=== PATIENT | female | born 1960 | race Caucasian/White ===

== ENCOUNTER 2018-08-27 07:31 | Inpatient (IN) | payer BC, OTHER ==
[2018-08-27] MEDS ORDERED: LEVALBUTEROL 1.25 MG/3 ML NEB ONE (07:57)
[2018-08-27] MEDS ORDERED: NA CHLORIDE 0.9% 1,000 ML ONE (07:58)
--- NOTE | 2018-08-27 08:26 | RAD REPORT ---
EXAM DESCRIPTION: RAD - Chest Single View - 08/27/2018 8:08 am CLINICAL HISTORY: Cough;Dyspnea Chest pain. COMPARISON: CHEST PA AND LAT 2 VIEW dated 08/01/2012; CHEST SINGLE VIEW dated 01/08/2012 FINDINGS: Portable technique limits examination quality. Mild interstitial pulmonary edema suspected. The heart is mildly to moderately enlarged. No displaced fractures. IMPRESSION: Mild CHF versus volume overload pattern.
[2018-08-27 08:29] LABS: Absolute Lymphocytes (CBC) 0.6 K/uL (0.7-4.9); Absolute Monocytes 0.3 K/uL (0.1-1.3); Absolute Neutrophil 7.6 K/uL (1.8-8.0); Basophils % 0.3 % (0-1.3); Eosinophils % 0.4 % (0-4.4); Hematocrit 41.7 % (36.0-45.0); Lymphocytes % 6.6 % (15.3-44.8); MPV 9.1 fL (7.6-11.3); Monocytes % 3.8 % (3.3-12.3); RBC Red Blood Cell Count 4.96 M/uL (3.86-4.86)
[2018-08-27 08:41] LABS: BUN Blood Urea Nitrogen 6 mg/dL (7-18); Bicarbonate 27 mmol/L (21-32); Glucose Level 133 mg/dL (74-106); NT PRO-BNP 787 pg/mL (<125); Potassium 3.7 mmol/L (3.5-5.1); Sodium Level 134 mmol/L (136-145); Troponin (Emerg Dept Use Only) 0.02 ng/mL (0.0-0.045)
--- NOTE | 2018-08-27 09:25 | EKG ---
Test Date: 2018-08-27 Test Time: 07:49:43 Gill Box Operator: IAN MEASUREMENT RESULTS: Intervals: Rate: 97 MT: 160 QRSD: 96 QT: 332 QTc: 421 [place]: P: 56 MT: 160 QRS: -64 T: -7 INTERPRETIVE STATEMENTS: Sinus rhythm with premature supraventricular complexes and with occasional premature ventricular complexes Left axis deviation Pulmonary disease pattern Incomplete right bundle branch block Abnormal ECG Compared to ECG 06/29/2007 00:50:01 Atrial premature complex(es) now present Ventricular premature complex(es) now present Left-axis deviation now present Incomplete right bundle-branch block now present Electronically Signed On 08-27-18 09:24:14 VICE PRESIDENT OF MANUFACTURING by Amos Oneil
[2018-08-27 09:49] LABS: Blood Morphology Comment NOT SEEN (NOT SEEN); Platelet Estimate ADEQ; Urine White Blood Cell Casts OK
--- NOTE | 2018-08-27 10:04 | ER ---
Nurse's Notes [facility] Name: Herlinda Cruz Age: 57 yrs Sex: Female : 1960 Arrival Date: 08/27/2018 Time: 07:33 Bed 2 Private MD: JAKOB DAVIS Diagnosis: Influenza due to identified novel influenza A virus with pneumonia;Hypoxemia;Dyspnea, unspecified Presentation: 08/27 07:41 Presenting complaint: Patient states: Difficulty breathing, started yesterday, sg worsening this morning, pt is diaphoretic and pale in triage, denies cardiac history, reports myasthenia gravis hx. Transition of care: patient was not received from another setting of care. Onset of symptoms was August 26, 2018. Risk Assessment: Do you want to hurt yourself or someone else? Patient reports no desire to harm self or others. Initial Sepsis Screen: Does the patient meet any 2 criteria? RR > 20 per min. HR > 90 bpm. Does the patient have a suspected source of infection? No. Patient's initial sepsis screen is negative. Care prior to arrival: None. 07:41 Method Of Arrival: Wheelchair sg 07:41 Acuity: HOWARD 2 sg Historical: - Allergies: 07:44 PENICILLINS; sg 07:44 Codeine; sg - Home Meds: 07:44 Mestinon Oral [Active]; sg - PMHx: 07:44 Myasthenia Gravis; sg - Immunization history:: Adult Immunizations not up to date. - Social history:: Smoking status: Patient/guardian denies using tobacco. - Ebola Screening: : Patient negative for fever greater than or equal to 101.5 degrees Fahrenheit, and additional compatible Ebola Virus Disease symptoms Patient denies exposure to infectious person Patient denies travel to an Ebola-affected area in the 21 days before illness onset No symptoms or risks identified at this time. - Family history:: not pertinent. - Hospitalizations: : No recent hospitalization is reported. Screenin:57 Abuse screen: Denies threats or abuse. Denies injuries from another. Nutritional hb screening: No deficits noted. Tuberculosis screening: No symptoms or risk factors identified. Fall Risk None identified. Assessment: 08:00 General: Appears distressed, Behavior is cooperative, anxious. Pain: Denies pain. hb Neuro: Level of Consciousness is awake, alert, obeys commands, Oriented to person, place, time, situation. Cardiovascular: Heart tones S1 S2 present Capillary refill < 3 seconds Patient's skin is warm and dry. Rhythm is regular. Respiratory: Airway is patent Trachea midline Respiratory effort is labored, Respiratory pattern is tachypnea Breath sounds are coarse. GI: No signs and/or symptoms were reported involving the gastrointestinal system. : No signs and/or symptoms were reported regarding the genitourinary system. EENT: No signs and/or symptoms were reported regarding the EENT system. Derm: Skin is intact, is healthy with good turgor, Skin is diaphoretic, Skin is pink. Musculoskeletal: No signs and/or symptoms reported regarding the musculoskeletal system. 08:26 Reassessment: RT at bedside for BiPAP setup. BIPAP 14/7, R14, FiO2 40%. hb 09:00 Reassessment: Patient and/or family updated on plan of care and expected duration. Pain hb level reassessed. BiPAP continues, pt resting with eyes closed, easily arouses to verbal stimuli. VSS. 10:00 Reassessment: Patient appears in no apparent distress at this time. No changes from hb previously documented assessment. Patient and/or family updated on plan of care and expected duration. Pain level reassessed. 11:00 Reassessment: Patient appears in no apparent distress at this time. No changes from hb previously documented assessment. Patient and/or family updated on plan of care and expected duration. Pain level reassessed. BiPAP continues, admission ordered, awaiting room assignment at this time. 11:48 Reassessment: Attempted to call report to ICU, receiving nurse unavailable at this time.hb Vital Signs: 07:40 BP 144 / 65; Pulse 92; Resp 28; Pulse Ox 81% on R/A; Pain 0/10; hb 07:44 Temp 98.6(TE); sg 08:45 BP 119 / 58; Pulse 97; Resp 21; Pulse Ox 96% on 40% BiPAP; hb 09:30 BP 126 / 76; Pulse 82; Resp 16; Pulse Ox 96% on 40% BiPAP; hb 10:30 BP 122 / 72; Pulse 92; Resp 22; Temp 98.4; Pulse Ox 96% on 40% BiPAP; hb 11:28 BP 131 / 71; Pulse 85; Resp 19; Pulse Ox 97% on 40% BiPAP; hb 08:45 BIPAP 14/7, R14, FiO2 40% hb ED Course: 07:33 Patient arrived in ED. sb2 07:33 JAKOB DAVIS is Private Physician. sb2 07:41 Oni Ragsdale MD is Attending Physician. rn 07:42 Triage completed. sg 07:42 Arm band placed on. sg 07:45 Initial lab(s) drawn, by me, sent to lab. Inserted saline lock: 20 gauge in right iw forearm, using aseptic technique. Blood collected. 07:49 EKG done, by corrosion technician. reviewed by Oni Ragsdale MD. at1 08:00 Patient has correct armband on for positive identification. Placed in gown. Bed in low hb position. Call light in reach. Side rails up X2. 08:06 Inserted saline lock: 22 gauge in left hand, using aseptic technique. iw 08:09 XRAY CXR (1 view) In Process Unspecified. EDMS 08:49 Yodit Cordero RN is Primary Nurse. hb 10:03 Oksana Escobedo MD is Hospitalizing Provider. rn Administered Medications: 07:55 Drug: NS 0.9% 500 ml Route: IV; Rate: bolus; Site: right antecubital; hb 08:35 Follow up: Response: No adverse reaction; IV Status: Completed infusion hb 07:56 Drug: Xopenex 1.25 mg Route: Inhalation; hb 08:45 Follow up: Response: No adverse reaction hb 11:11 Drug: Tamiflu 75 mg Route: PO; hb 11:45 Follow up: Response: No adverse reaction hb Outcome: 10:03 Decision to Hospitalize by Provider. rn 12:54 Patient left the ED. hb Signatures: Dispatcher [employer] EDMS Mars Ryan, RN Ca Molina RN Oni Young MD MD rn Gonzales, Amanda, power tool repair technician EKG Tat1 Yodit Cordero RN RN hb Billeau, Sheri sb2
--- NOTE | 2018-08-27 10:05 | EDPHYS ---
Physician Documentation [facility] Name: Herlinda Cruz Age: 57 yrs Sex: Female : 1960 Arrival Date: 08/27/2018 Time: 07:33 Bed 2 Private MD: JAKOB DAVIS ED Physician Oni Ragsdale HPI: 08/27 08:01 This 57 yrs old Female presents to ER via Wheelchair with complaints of rn Breathing Difficulty. 08:01 The patient has shortness of breath at rest, with light activity. Onset: The rn symptoms/episode began/occurred 2 day(s) ago. Duration: The symptoms are continuous. The patient's shortness of breath is aggravated by exertion, light activity, talking, walking. Associated signs and symptoms: Pertinent positives: productive cough, fever, Pertinent negatives: hemoptysis, loss of consciousness. Severity of symptoms: At their worst the symptoms were moderate in the emergency department the symptoms are unchanged. The patient has not experienced similar symptoms in the past. The patient has not recently seen a physician. Reports sick exposure lately, + productive cough and subjective fever/chills, + SOB. . Historical: - Allergies: 07:44 PENICILLINS; sg 07:44 Codeine; sg - Home Meds: 07:44 Mestinon Oral [Active]; sg - PMHx: 07:44 Myasthenia Gravis; sg - Immunization history:: Adult Immunizations not up to date. - Social history:: Smoking status: Patient/guardian denies using tobacco. - Ebola Screening: : Patient negative for fever greater than or equal to 101.5 degrees Fahrenheit, and additional compatible Ebola Virus Disease symptoms Patient denies exposure to infectious person Patient denies travel to an Ebola-affected area in the 21 days before illness onset No symptoms or risks identified at this time. - Family history:: not pertinent. - Hospitalizations: : No recent hospitalization is reported. 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 Exam: 08:01 Constitutional: This is a well developed, well nourished patient who is awake, alert, rn + mild respiratory distress, speaking 3-4 word sentences Head/Face: Normocephalic, atraumatic. Eyes: Pupils equal round and reactive to light, extra-ocular motions intact. Lids and lashes normal. Conjunctiva and sclera are non-icteric and not injected. Cornea within normal limits. Periorbital areas with no swelling, redness, or edema. ENT: Dry MM, no stridor Cardiovascular: Regular rate and rhythm, No pulse deficits. Respiratory: Coarse breath sounds left lung russo, no wheezing, + tachypnea Abdomen/GI: soft, non-tender MS/ Extremity: Pulses equal, no cyanosis. Neurovascular intact. Full, normal range of motion. Equal circumference. Neuro: Awake and alert, GCS 15, oriented to person, place, time, and situation. Cranial nerves II-XII grossly intact. Motor strength 4/5 in all extremities. Sensory grossly intact. Vital Signs: 07:40 BP 144 / 65; Pulse 92; Resp 28; Pulse Ox 81% on R/A; Pain 0/10; hb 07:44 Temp 98.6(TE); sg 08:45 BP 119 / 58; Pulse 97; Resp 21; Pulse Ox 96% on 40% BiPAP; hb 09:30 BP 126 / 76; Pulse 82; Resp 16; Pulse Ox 96% on 40% BiPAP; hb 10:30 BP 122 / 72; Pulse 92; Resp 22; Temp 98.4; Pulse Ox 96% on 40% BiPAP; hb 11:28 BP 131 / 71; Pulse 85; Resp 19; Pulse Ox 97% on 40% BiPAP; hb 08:45 BIPAP 14/7, R14, FiO2 40% hb MDM: 07:41 Patient medically screened. rn 10:02 Differential diagnosis: pneumonia, Pneumothorax pulmonary edema, reactive airway rn disease, Sepsis. Data reviewed: vital signs, nurses notes, lab test result(s), EKG, radiologic studies, plain films, and as a result, I will admit patient. Counseling: I had a detailed discussion with the patient and/or guardian regarding: the historical points, exam findings, and any diagnostic results supporting the discharge/admit diagnosis, lab results, radiology results, the need for further work-up and treatment in the hospital. Response to treatment: the patient's symptoms have markedly improved after treatment, and as a result, I will admit patient. Admission orders: after a detailed discussion of the patient's condition and case, the admit orders are written by me. ED course: Much better on bipap, + flu pneumonia, will admit to Dr. Escobedo in ICU. . 08/27 07:45 Order name: Blood Culture Adult (2) rn 08/27 07:45 Order name: BMP; Complete Time: 09:51 rn 08/27 07:45 Order name: CBC with Diff; Complete Time: 09:51 rn 08/27 07:45 Order name: NT PRO-BNP; Complete Time: 09:51 rn 08/27 07:45 Order name: Troponin (emerg Dept Use Only); Complete Time: 09:51 rn 08/27 07:45 Order name: Flu; Complete Time: 09:51 rn 08/27 07:45 Order name: XRAY CXR (1 view); Complete Time: 08:27 rn 08/27 07:45 Order name: EKG; Complete Time: 07:47 rn 08/27 07:45 Order name: Lactate; Complete Time: 09:51 rn 08/27 07:45 Order name: Procalcitonin; Complete Time: 09:51 rn 08/27 08:32 Order name: CBC Smear Scan; Complete Time: 09:51 EDMS 08/27 07:45 Order name: Cardiac monitoring; Complete Time: 07:56 rn 08/27 07:45 Order name: EKG - Nurse/Tech; Complete Time: 07:56 rn 08/27 07:45 Order name: IV Saline Lock; Complete Time: 07:56 rn 08/27 07:45 Order name: Labs collected and sent; Complete Time: 07:56 rn 08/27 07:45 Order name: O2 Per Protocol; Complete Time: 07:56 rn 08/27 07:45 Order name: O2 Sat Monitoring; Complete Time: 07:56 rn Administered Medications: 07:55 Drug: NS 0.9% 500 ml Route: IV; Rate: bolus; Site: right antecubital; hb 08:35 Follow up: Response: No adverse reaction; IV Status: Completed infusion hb 07:56 Drug: Xopenex 1.25 mg Route: Inhalation; hb 08:45 Follow up: Response: No adverse reaction hb 11:11 Drug: Tamiflu 75 mg Route: PO; hb 11:45 Follow up: Response: No adverse reaction hb Disposition: 10:02 Critical Care:. rn Disposition: 08/27/18 10:03 Hospitalization ordered by Oksana Escobedo for Inpatient Admission. Preliminary diagnosis are Influenza due to identified novel influenza A virus with pneumonia, Hypoxemia, Dyspnea, unspecified. - Bed requested for Intensive Care Unit. - Status is Inpatient Admission. hb - Condition is Stable. - Problem is new. - Symptoms have improved. UTI on Admission? No Critical care time excluding procedures: 10:02 Critical care time: Bedside Care: 25 minutes, Consultation: 5 minutes. Total time: 30 rn minutes Signatures: Dispatcher [employer] Anastasia Mueller RN RN dw Gay, Steven, RN RN Oni Ragsdale MD MD rn Baxter, Heather, RN RN Corrections: (The following items were deleted from the chart) 10:28 10:03 Hospitalization Ordered by Oksana Escobedo MD for Inpatient Admission. Preliminary rn diagnosis is Influenza due to identified novel influenza A virus with pneumonia; Hypoxemia; Dyspnea, unspecified. Bed requested for Telemetry/MedSurg (Inpatient). Status is Inpatient Admission. Condition is Stable. Problem is new. Symptoms have improved. UTI on Admission? No. rn 11:25 10:28 08/27/2018 10:03 Hospitalization Ordered by Oksana Escobedo MD for Inpatient dw Admission. Preliminary diagnosis is Influenza due to identified novel influenza A virus with pneumonia; Hypoxemia; Dyspnea, unspecified. Bed requested for Intensive Care Unit. Status is Inpatient Admission. Condition is Stable. Problem is new. Symptoms have improved. UTI on Admission? No. rn 12:54 11:25 08/27/2018 10:03 Hospitalization Ordered by Oksana Escobedo MD for Inpatient hb Admission. Preliminary diagnosis is Influenza due to identified novel influenza A virus with pneumonia; Hypoxemia; Dyspnea, unspecified. Bed requested for Intensive Care Unit. Status is Inpatient Admission. Condition is Stable. Problem is new. Symptoms have improved. UTI on Admission? No. dw
[2018-08-27] MEDS ORDERED: NA CHLORIDE 0.9% 1,000 ML IV SCH (11:00)
[2018-08-27] MEDS: OSELTAMIVIR 75 MG CAP PO SCH ×2 (11:00→20:49)
--- NOTE | 2018-08-27 13:14 | P.HP ---
Certification for Inpatient Patient admitted to: Inpatient With expected LOS: >2 Midnights Patient will require the following post-hospital care: None Practitioner: I am a practitioner with admitting privileges, knowledge of patient current condition, hospital course, and medical plan of care. Services: Services provided to patient in accordance with Admission requirements found in Title 42 Section 412.3 of the Code of Federal Regulations Patient History Date of Service: 08/27/18 Reason for admission: Fever and shortness of breath History of Present Illness: 57-year-old female with significant past medical history of myasthenia gravis who presented to the ED complaining of having some shortness of breath coughing fever chills that has been going on for past couple of days. Patient stated that she was baby-sitting her grand daughter since Monday and got progressively worse and thus decided to come to the ER. The granddaughter was recently diagnosed with acute illness with pneumonia and she thought that she might also have that. Patient also takes aware for shortness of breath secondary to her myasthenia gravis however has not been taking it for a week now as she left the inhaler at work. No other complaints to offer at this time. States that the fever was 100.2 at home. Subjective chills were also noted. Patient denies having any chest pain nausea vomiting abdominal pain diarrhea or any other associated symptoms at this time. In the ER upon presentation patient had O2 saturations of 40-50%. She was initially placed on non-rebreather and then on BiPAP. The lab work is negative for leukocytes doses were elevated neutrophils. Patient did have positive influenza A and thus was admitted to the hospital for influenza pneumonia causing acute respiratory failure complicated by myasthenia gravis Allergies codeine [Codeine] Allergy (Verified 01/08/12 14:05) Hives Penicillins Allergy (Verified 01/08/12 14:04) Hives/Rash Home Medications: Guaifenesin [Mucinex] 600 mg PO Q12HP PRN 08/27/18 Pyridostigmine [place] [Mestinon] 60 mg PO Q8H 08/27/18 - Past Medical/Surgical History Has patient received pneumonia vaccine in the past: No Diabetic: No -: Myasthenia gravis Past Surgical History: Reviewed- Non-Contributory - Family History Family History: Reviewed- Non-Contributory - Social History Smoking Status: Never smoker Smoking therapy provided: No Patient receptive to therapy: No Alcohol use: No CD- Drugs: No Caffeine use: No Place of Residence: Home Review of Systems 10-point ROS is otherwise unremarkable Physical Examination - Vital Signs Temperature: 98.4 F Blood Pressure: 131/71 Pulse: 85 Respirations: 19 - Physical Exam General: Alert, Moderate distress HEENT: Atraumatic, PERRLA, Mucous membr. moist/pink, EOMI, Sclerae nonicteric Neck: Supple, 2+ carotid pulse no bruit, No LAD, Without JVD or thyroid abnormality Respiratory: Normal air movement, Expiratory wheezes, Inspiratory wheezes Cardiovascular: Regular rate/rhythm, Normal S1 S2 Gastrointestinal: Normal bowel sounds, No tenderness Musculoskeletal: No tenderness Integumentary: No rashes Neurological: Normal speech, Normal tone Lymphatics: No axilla or inguinal lymphadenopathy - Studies Laboratory Data (last 24 hrs) 08/27/18 07:45: WBC 8.5, Hgb 14.1, Hct 41.7, Plt Count 228 08/27/18 07:45: Sodium 134 L, Potassium 3.7, BUN 6 L, Creatinine 0.66, Glucose 133 H Microbiology Data (last 24 hrs): 08/27/18 07:45 Nasopharnyx Influenza Type A Antigen Screen - Final 08/27/18 07:45 Nasopharnyx Influenza Type B Antigen Screen - Final Assessment and Plan - Problems (Diagnosis) (1) Acute respiratory failure Current Visit: Yes Status: Acute Plan: Acute respiratory failure most likely secondary to influenza pneumonia -patient with history of myasthenia gravis -currently on BiPAP. Will wean as tolerated -duonebs, Tamiflu at this time. -Currently monitor in the ICU. The patient is weaned off of BiPAP can be transferred out of ICU to the regular floor. Qualifiers: Respiratory failure complication: hypoxia Qualified Code(s): J96.01 - Acute respiratory failure with hypoxia (2) Influenza, pneumonia Current Visit: Yes Status: Acute Plan: Patient with influenza pneumonia. Recent exposure to granddaughter who is positive for influenza as well -currently on Tamiflu b.i.d. (3) Myasthenia gravis Current Visit: Yes Status: Acute Plan: Patient with history of myasthenia gravis currently taking medication for it. -had appointment with a neurologist today to followup. Will need to reschedule the appointment once acute phase over. - Advance Directives Does patient have a Living Will: No Does patient have a Durable POA for Healthcare: No
[2018-08-27] MEDS: ALBUTEROL 2.5 MG/3 ML NEB SOL NEB SCH ×2 (13:15→20:00)
[2018-08-27] MEDS: IPRATROPIUM BROM 0.5MG/2.5ML NEB SCH ×2 (13:15→20:00)
[2018-08-27 13:27] VITALS: BMI 43.8
[2018-08-27] MEDS: MESTINON 60 MG PO SCH ×2 (14:50→20:48)
[2018-08-27] MEDS: ACETAMINOPHEN 500 MG TAB PO PRN (14:51)
[2018-08-27] MEDS ORDERED: PYRIDOSTIGMINE 60 MG TABLET PO SCH (15:00)
[2018-08-27] MEDS ORDERED: ENOXAPARIN 40 MG/0.4 ML SQ SCH (17:00)
--- NOTE | 2018-08-27 17:00 | ECHO ---
HEIGHT: 5 ft 7 in WEIGHT: 280 lb 0 oz DATE OF STUDY: 08/27/[address]: Oksana Escobedo MD 2-DIMENSIONAL: YES M.MODE: YES DOPPLER: YES COLOR FLOW: YES TDS: PORTABLE: DEFINITY: BUBBLE STUDY: DIAGNOSIS: CONGESTIVE HEART FAILURE/FLU CARDIAC HISTORY: CATHERIZATION: NO SURGERY: NO PROSTHETIC VALVE: NO PACEMAKER: NO MEASUREMENTS (cm) DIASTOLIC (NORMALS) SYSTOLIC (NORMALS) IVSd 1.1 (0.6-1.2) LA Diam 3.5 (1.9-4.0) LVEF 71% LVIDd 3.6 (3.5-5.7) LVIDs 2.2 (2.0-3.5) %FS 39% LVPWd 1.2 (0.6-1.2) Ao Diam 2.7 (2.0-3.7) 2 DIMENSIONAL ASSESSMENT: RIGHT ATRIUM: NORMAL LEFT ATRIUM: NORMAL RIGHT VENTRICLE: NORMAL LEFT VENTRICLE: NORMAL TRICUSPID VALVE: NORMAL MITRAL VALVE: NORMAL PULMONIC VALVE: NORMAL AORTIC VALVE: NORMAL PERICARDIAL EFFUSION: NONE AORTIC ROOT: NORMAL LEFT VENTRICULAR WALL MOTION: NORMAL DOPPLER/COLOR FLOW: NORMAL COMMENTS: NORMAL TWO DIMENSIONAL ECHOCARDIOGRAM WITH DOPPLER. TECHNOLOGIST: KIANA HUNTER
[2018-08-27] MEDS: GUAIFENESIN 600 MG SA TAB PO SCH (20:48)
[2018-08-28] MEDS: ALBUTEROL 2.5 MG/3 ML NEB SOL NEB SCH ×4 (02:00→20:09)
[2018-08-28] MEDS: IPRATROPIUM BROM 0.5MG/2.5ML NEB SCH ×4 (02:00→20:09)
[2018-08-28] MEDS: MESTINON 60 MG PO SCH ×3 (03:42→19:52)
[2018-08-28 05:39] LABS: Absolute Lymphocytes (CBC) 0.7 K/uL (0.7-4.9); Absolute Monocytes 0.6 K/uL (0.1-1.3); Absolute Neutrophil 4.8 K/uL (1.8-8.0); Basophils % 0.4 % (0-1.3); Eosinophils % 2.1 % (0-4.4); Hematocrit 38.2 % (36.0-45.0); Lymphocytes % 11.9 % (15.3-44.8); MPV 9.1 fL (7.6-11.3); Monocytes % 8.9 % (3.3-12.3); RBC Red Blood Cell Count 4.58 M/uL (3.86-4.86)
[2018-08-28 06:01] LABS: ALT/SGPT 15 U/L (12-78); AST/SGOT 11 U/L (15-37); Albumin 2.9 g/dL (3.4-5.0); Alkaline Phosphatase 85 U/L (45-117); BUN Blood Urea Nitrogen 6 mg/dL (7-18); Bicarbonate 30 mmol/L (21-32); Bilirubin Total 0.5 mg/dL (0.2-1.0); Glucose Level 90 mg/dL (74-106); Potassium 3.5 mmol/L (3.5-5.1); Protein, Total 7.1 g/dL (6.4-8.2); Sodium Level 138 mmol/L (136-145)
[2018-08-28] MEDS: OSELTAMIVIR 75 MG CAP PO SCH ×2 (08:28→20:05)
[2018-08-28] MEDS: GUAIFENESIN 600 MG SA TAB PO SCH ×2 (08:28→20:05)
[2018-08-28] MEDS: ACETAMINOPHEN 500 MG TAB PO PRN (12:51)
[2018-08-28 13:34] LABS: Protime INR 2.11
[2018-08-28] MEDS: WARFARIN SODIUM 5 MG TAB PO SCH (18:32)
--- NOTE | 2018-08-28 19:56 | PN ---
Date of Progress Note: 08/28/2018 Subjective: The patient is seen and examined. Chart reviewed and case discussed with RN. The patie nt is still reporting some difficulty breathing, has been on BiPAP intermittently. Medications: List reviewed. Physical Examination: Vital Signs: Temperature 98.9, heart rate 92, blood pressure 114/52, respirations 18, and O2 of 95% on BiPAP with 40% FiO2. General: Awake, alert, and oriented x3. Some mild respiratory distress. Morbidly obese, ill-appear ing female. CV: S1 and S2. Regular rate and rhythm. Peripheral pulses present. Respiratory: Diminished breath sounds. No wheezing or stridor. The patient is slightly tachypneic. Gastrointestinal: Abdomen is soft, nontender, and nondistended. Positive bowel sounds. Extremities: No clubbing, cyanosis, or edema. No calf tenderness. Neurologic: Cranial nerves 2 through 12 intact grossly. No focal neurological deficits. Speech is normal. Skin: No rashes. Normal skin turgor. Laboratory Data: Sodium 138, potassium 3.5, chloride 103, CO2 of 30, BUN 6, creatinine 0.6, glucose 90, and calcium 7.8. WBC 6.3, H and H of 13 and 38.2, platelets 188, neutrophils 76%. INR 2.11. D- dimer less than 215. Blood cultures, no growth to date. Echocardiogram; EF of 71%. Assessment And Plan: A 57-year-old female with, 1.Acute respiratory failure secondary to influenza pneumonia. The patient does have complicating hi story with myasthenia gravis, unable to tolerate weaning off BiPAP. We will consult Pulmonology. Co ntinue Tamiflu and nebulizer treatments. 2.Influenza pneumonia. We will continue with Tamiflu. 3.Myasthenia gravis. Continue home medication. The patient was to follow up with Dr. Dick as an outpatient, however, currently in the hospital. 4.Atrial fibrillation, paroxysmal, currently in sinus rhythm. We will resume Coumadin. 5.Dyslipidemia. We will resume statin. 6.Morbid obesity, BMI of 43.9, counseled. 7.Gastrointestinal and deep venous thrombosis prophylaxis. The patient is already on Coumadin. 8.Essential hypertension. Continue losartan. PLAN: 1.Resume home medications as appropriate. 2.Wean off BiPAP as tolerated. Pulmonology consultation, step down from ICU once respiratory status is improved. SA/MODL Voice ID: [id number] Report ID: [id number]
[2018-08-28] MEDS: ATORVASTATIN 10 MG TAB PO SCH (20:05)
[2018-08-29] MEDS: ALBUTEROL 2.5 MG/3 ML NEB SOL NEB SCH ×4 (02:08→20:00)
[2018-08-29] MEDS: IPRATROPIUM BROM 0.5MG/2.5ML NEB SCH ×4 (02:08→20:00)
[2018-08-29] MEDS: MESTINON 60 MG PO SCH ×3 (03:58→21:01)
--- NOTE | 2018-08-29 08:05 | P.CNS ---
Date of Consult: 08/29/18 Chief Complaint: Respiratory failure History of Present Illness: Patient is 57 years of age admitted to the emergency room complaining of shortness of breath fever chills prior few days prior to admission she has had shortness of breath for the past year patient does use a pro air on a ride on an intermittent basis Apparently she has shortness of breath off the BiPAP never smoked patient has a history of myasthenia gravis with slight fever on admission also has a productive cough. History of PE in atrial fibrillation Allergies codeine [Codeine] Allergy (Verified 08/27/18 13:14) Hives Penicillins Allergy (Verified 08/27/18 13:14) Hives/Rash Home Medications: Guaifenesin [Mucinex] 600 mg PO Q12HP PRN 08/27/18 Pyridostigmine Harmony [Mestinon] 60 mg PO Q8H 08/27/18 Atorvastatin Calcium [Lipitor*] 1 tab PO BEDTIME 08/28/18 Losartan Potassium [Cozaar] 100 mg PO DAILY 08/28/18 Warfarin Sodium [Coumadin] 10 mg PO DAILY 5 PM 08/28/18 - Past Medical/Surgical History Diabetic: No -: Myasthenia gravis -: Atrial fibrillation -: History of PE -: bilateral eye sx -: ankle sx - Social History Alcohol use: No CD- Drugs: No Caffeine use: No Place of Residence: Home Review of Systems 10-point ROS is otherwise unremarkable General: Weakness Respiratory: Shortness of Breath Physical Examination Temp Pulse Resp BP Pulse Ox 98.6 F 83 15 115/63 97 08/29/18 04:00 08/29/18 07:00 08/29/18 07:00 08/29/18 07:00 08/29/18 05:00 General: Alert, Oriented x3, Mild distress Neck: Supple Respiratory: Clear to auscultation bilaterally, Diminished Cardiovascular: No edema, Regular rate/rhythm, Normal S1 S2 Gastrointestinal: Normal bowel sounds, Soft and benign - Problems (1) Acute respiratory failure Onset Date: 08/28/18 Current Visit: Yes Status: Acute Plan: Patient is 57 years of age with a history of myasthenia gravis pulmonary embolism in atrial fibrillation admitted with respiratory distress respiratory failure normal echocardiogram of ordered ABGs trial of steroids INR is therapeutic patient has a slight temperature labs reviewed white count normal pro calcitonin level is negative influenza A positive I have added a trial of steroids arterial blood gases doubt bacterial infection patient has cardiomegaly on chest x-ray repeat chest x-ray in if her current hypoxemia with a relative hypercapnia bordered a CT angiogram as she has a day history of thromboembolism Qualifiers: Respiratory failure complication: hypoxia Qualified Code(s): J96.01 - Acute respiratory failure with hypoxia
[2018-08-29 08:22] LABS: Absolute Lymphocytes (CBC) 0.7 K/uL (0.7-4.9); Absolute Monocytes 0.5 K/uL (0.1-1.3); Eosinophils % 5.8 % (0-4.4); Hematocrit 39.5 % (36.0-45.0); Lymphocytes % 15.7 % (15.3-44.8); MPV 8.9 fL (7.6-11.3); Monocytes % 10.5 % (3.3-12.3); RBC Red Blood Cell Count 4.68 M/uL (3.86-4.86)
[2018-08-29] MEDS: METHYLPREDNISOLONE 40 MG INJ IV SCH ×2 (08:23→16:05)
[2018-08-29] MEDS: LOSARTAN POTASSIUM 50 MG TABLET PO SCH (08:24)
[2018-08-29] MEDS: GUAIFENESIN 600 MG SA TAB PO SCH ×2 (08:25→21:01)
[2018-08-29] MEDS: OSELTAMIVIR 75 MG CAP PO SCH ×2 (08:25→21:01)
[2018-08-29 08:32] LABS: Protime INR 2.09
[2018-08-29 08:34] LABS: BUN Blood Urea Nitrogen 8 mg/dL (7-18); Bicarbonate 31 mmol/L (21-32); Glucose Level 91 mg/dL (74-106); Potassium 3.8 mmol/L (3.5-5.1); Sodium Level 140 mmol/L (136-145)
[2018-08-29 09:50] LABS: Arterial Blood Carboxyhemoglob 1.2 % (0-1.5); Blood Gas Oxyhemoglobin 87.9 % (94-97); Blood O2 Saturation 89.6 % (92-98.5)
--- NOTE | 2018-08-29 10:07 | RAD REPORT ---
EXAM DESCRIPTION: RAD - Chest Single View - 08/29/2018 9:59 am CLINICAL HISTORY: Respiratory failure Chest pain. COMPARISON: Chest Single View dated 08/27/2018; CHEST PA AND LAT 2 VIEW dated 08/01/2012; CHEST SINGLE V IEW dated 01/08/2012 FINDINGS: Portable technique limits examination quality. The lungs are grossly clear. The heart is normal in size. No displaced fractures. IMPRESSION: No acute intrathoracic process suspected.
--- NOTE | 2018-08-29 14:22 | RAD REPORT ---
EXAM DESCRIPTION: CT - Chest For Pe Angio - 08/29/2018 2:10 pm CLINICAL HISTORY: Chest pain. RO PE COMPARISON: CTANGIO CHEST FOR PE dated 06/29/2007 TECHNIQUE: CT angiogram of the pulmonary arteries was performed with MIP. All CT scans are performed using dose optimization technique as appropriate and may include automated exposure control or mA/KV adjustment according to patient size. FINDINGS: No evidence of proximal pulmonary thromboembolism. The distal branch vessels are suboptima lly visualized due to phase of contrast opacification. No acute aortic finding demonstrated. Linear atelectasis is present in the left lung base. No focal consolidation typical of pneumonia seen . No significant pericardial or pleural fluid. No concerning bony finding. IMPRESSION: No evidence of proximal pulmonary arterial thromboembolism. The more distal branch vesse ls are suboptimally visualized due to phase of contrast enhancement within the pulmonary arterial arias e and mild respiratory artifact. A V/Q scan could be obtained if further assessment for pulmonary emb olism is clinically needed. Mild linear subsegmental atelectasis is identified in the left lung base. No focal consolidation typi cristian of bacterial pneumonia is seen.
--- NOTE | 2018-08-29 15:32 | PN ---
Date of Progress Note: 08/29/2018 Subjective: The patient is seen and examined, chart reviewed, and case discussed with RN and Dr. Vasu gibson. The patient feels better than yesterday, was complaining of significant shortness of breath a nd was unable to be taken off BiPAP other than just for eating. Case discussed with Dr. Weir. T he patient states she feels slightly better today. Medications: List reviewed. Physical Examination: Vital Signs: Temperature 97.2, T-max was 101.3 yesterday afternoon at noon, heart rate 92, blood pre ssure 125/81, respirations 16, and O2 of 95% on 40% BiPAP FiO2. General: Awake, alert, and oriented x3, ill-appearing female, morbidly obese. CV: S1 and S2. Regular rate and rhythm. Peripheral pulses present. Respiratory: Diminished breath sounds. No wheezing or stridor. Gastrointestinal: Abdomen is soft, nontender, and nondistended. Positive bowel sounds. Extremities: No clubbing, cyanosis, or edema. No calf tenderness. Neurologic: Cranial nerves 2 through 12 intact grossly. No focal neurological deficits. Speech is normal. Skin: No rashes. Normal skin turgor. Laboratory Data: Sodium 140, potassium 3.8, chloride 106, CO2 of 31, BUN 8, creatinine 0.49, glucose 91, and calcium 8.4. WBC 4.5, H and H of 13.2 and 39.5, platelets 207, neutrophils 67%. Blood cult ures, no growth to date. Chest x-ray personally reviewed, shows no acute intrathoracic process suspe cted. Assessment And Plan: A 57-year-old female with, 1.Acute respiratory failure with hypoxia secondary to influenza pneumonia complicated with history o f myasthenia gravis. Now, the patient to be weaned off BiPAP as tolerated. We will check ABG. I ap preciate Pulmonology's input. 2.Influenza pneumonia. Continue Tamiflu. Blood cultures negative to date. 3.Myasthenia gravis. Continue home medications. The patient does follow with Neurology as an outpa tient. 4.Paroxysmal atrial fibrillation, currently in sinus rhythm. The patient is on Coumadin. INR is th erapeutic. Continue to monitor INR. 5.Dyslipidemia, stable. 6.Morbid obesity, BMI of 43.9. 7.Essential hypertension, on losartan. 8.Gastrointestinal and deep venous thrombosis prophylaxis. The patient is already on Coumadin. PLAN: Wean off BiPAP as tolerated, step down from ICU. Chest x-ray is clear. We will wean off oxyg en and likely discharge in the next 24 to 48 hours depending on clinical response. /UDAY Voice ID: [id number] Report ID: [id number]
[2018-08-29] MEDS: WARFARIN SODIUM 5 MG TAB PO SCH (16:05)
[2018-08-29] MEDS: ATORVASTATIN 10 MG TAB PO SCH (21:01)
[2018-08-30] MEDS: METHYLPREDNISOLONE 40 MG INJ IV SCH ×3 (00:24→18:13)
[2018-08-30] MEDS: ALBUTEROL 2.5 MG/3 ML NEB SOL NEB SCH ×4 (02:20→19:22)
[2018-08-30] MEDS: IPRATROPIUM BROM 0.5MG/2.5ML NEB SCH ×4 (02:20→19:22)
[2018-08-30 04:49] LABS: Protime INR 2.78
[2018-08-30 05:05] LABS: ALT/SGPT 21 U/L (12-78); AST/SGOT 16 U/L (15-37); Albumin 3.1 g/dL (3.4-5.0); Alkaline Phosphatase 58 U/L (45-117); BUN Blood Urea Nitrogen 11 mg/dL (7-18); Bicarbonate 29 mmol/L (21-32); Bilirubin Total 0.3 mg/dL (0.2-1.0); Glucose Level 133 mg/dL (74-106); Potassium 4.2 mmol/L (3.5-5.1); Protein, Total 7.8 g/dL (6.4-8.2); Sodium Level 142 mmol/L (136-145)
[2018-08-30] MEDS: MESTINON 60 MG PO SCH ×3 (05:15→23:02)
--- NOTE | 2018-08-30 07:01 | RAD REPORT ---
EXAM DESCRIPTION: RAD - Chest Single View - 08/30/2018 6:54 am CLINICAL HISTORY: Respiratory failure COMPARISON: August 29 TECHNIQUE: AP portable chest image was obtained 0642 hours . FINDINGS: Lung volumes are low. No new mass or consolidation. Heart, vasculature and lung markings a re stable. Trachea is midline. No measurable pleural effusion and no pneumothorax. No acute bony abno rmality seen. No acute aortic findings suspected. IMPRESSION: Shallow inspiration chest exam showing no new or progressive finding from prior day stud y.
--- NOTE | 2018-08-30 08:48 | P.PN ---
Subjective Date of Service: 08/30/18 Chief Complaint: Shortness of breath Subjective: Improving (Patient has improved upon further questioning patient did mentions that she has recurrent attacks of bronchitis has to use the short- acting bronchodilators particularly on exertion family history of asthma) Review of Systems Unremarkable Physical Examination - Vital Signs Temperature: 97 F Blood Pressure: 134/73 Pulse: 77 Respirations: 20 Pulse Ox (%): 90 - Physical Exam General: Alert, Oriented x3 HEENT: Atraumatic Respiratory: Friction rub, Expiratory wheezes Cardiovascular: No edema, Regular rate/rhythm Assessment & Plan - Problems (Diagnosis) (1) Acute respiratory failure Onset Date: 08/28/18 Current Visit: Yes Status: Resolved Plan: Patient is 57 years of age with a history of myasthenia gravis pulmonary embolism in atrial fibrillation admitted with respiratory distress respiratory failure normal echocardiogram of ordered ABGs trial of steroids INR is therapeutic patient has a slight temperature labs reviewed white count normal pro calcitonin level is negative influenza A positive I have added a trial of steroids arterial blood gases doubt bacterial infection patient has cardiomegaly on chest x-ray repeat chest x-ray in if her current hypoxemia with a relative hypercapnia bordered a CT angiogram as she has a day history of thromboembolism Qualifiers: Respiratory failure complication: hypoxia Qualified Code(s): J96.01 - Acute respiratory failure with hypoxia (2) Shortness of breath Current Visit: Yes Status: Acute Plan: Patient is 57 years of age has had recurrent attacks of shortness of breath and bronchitis I suspect that she has underlying obstructive airways disease doing much better right now no evidence of chronic pulmonary hypertension he probably has underlying obstructive airways disease most likely asthma she has never smoked I recommend that she be discharged home on low-dose prednisone 10 mg twice a day for 7 days in addition to a long-acting bronchodilator either Symbicort or Advair and follow up with me in 2 weeks was still hypoxic patient is wheezing she main need a home oxygen for a short period follow with me in 2 weeks
[2018-08-30] MEDS: OSELTAMIVIR 75 MG CAP PO SCH ×2 (09:46→21:22)
[2018-08-30] MEDS: LOSARTAN POTASSIUM 50 MG TABLET PO SCH (09:46)
[2018-08-30] MEDS: GUAIFENESIN 600 MG SA TAB PO SCH ×2 (09:46→21:22)
[2018-08-30] MEDS: WARFARIN SODIUM 5 MG TAB PO SCH (18:13)
--- NOTE | 2018-08-30 18:52 | PN ---
Date of Progress Note: 08/30/2018 Subjective: The patient is seen and examined. Chart reviewed and case discussed with RN and Dr. Vasu gibson. The patient is still having significant shortness of breath, became hypoxic on room air at 84 %. Overall, she states she is feeling better, able to ambulate around the room. Medications: List reviewed. Physical Examination: Vital Signs: Temperature 97.8, heart rate 76, blood pressure 143/79, respirations 20, O2 94% on 3 L via nasal cannula. General: Awake, alert, oriented x3, ill-appearing, morbidly obese female. CV: S1, S2. Regular rate and rhythm. Peripheral pulses present. Respiratory: Diminished breath sounds. The patient is slightly tachypneic. No use of accessory mus cles. No stridor. Gastrointestinal: Abdomen is soft, nontender, nondistended. Positive bowel sounds. Extremities: No clubbing, cyanosis, or edema. Neurologic: Nonfocal. Laboratory Data: Sodium 142, potassium 4.2, chloride 108, CO2 29, BUN 11, creatinine 0.47, glucose 1 33, calcium 9, WBC pending. Blood cultures, no growth to date. Chest x-ray shows shallow inspiratio n. Chest exam showing no new or progressive finding from prior day study, personally reviewed. Assessment And Plan: A 57-year-old female with: 1.Acute respiratory failure with hypoxia secondary to influenza, pneumonia and bronchitis. The woo ent's pneumonia is complicated by history of myasthenia gravis and bronchitis. Chest x-ray does not show much improvement. Currently still on nasal cannula, was 84% on room air. May need to be on nay e oxygen for a period of time. Appreciate Dr. Weir's input. 2.Influenza pneumonia. Continue Tamiflu. Cultures negative to date. 3.Myasthenia gravis, stable. The patient to followup with Neurology as outpatient. 4.Paroxysmal atrial fibrillation, currently in sinus rhythm. INR is therapeutic. 5.Dyslipidemia. 6.Morbid obesity. 7.Essential hypertension. 8.Gastrointestinal and deep venous thrombosis prophylaxis addressed. SA/MODL Voice ID: [id number] Report ID: [id number]
[2018-08-30] MEDS: ATORVASTATIN 10 MG TAB PO SCH (21:22)
[2018-08-31] MEDS: ALBUTEROL 2.5 MG/3 ML NEB SOL NEB SCH ×2 (01:08→08:55)
[2018-08-31] MEDS: IPRATROPIUM BROM 0.5MG/2.5ML NEB SCH ×2 (01:08→08:55)
[2018-08-31] MEDS: METHYLPREDNISOLONE 40 MG INJ IV SCH ×2 (01:19→08:52)
[2018-08-31] MEDS: MESTINON 60 MG PO SCH ×2 (04:55→11:43)
[2018-08-31 06:28] LABS: Protime INR 4.49
[2018-08-31] MEDS: OSELTAMIVIR 75 MG CAP PO SCH (08:53)
[2018-08-31] MEDS: LOSARTAN POTASSIUM 50 MG TABLET PO SCH (08:53)
[2018-08-31] MEDS: GUAIFENESIN 600 MG SA TAB PO SCH (08:53)
[2018-08-31 10:43] VITALS: O2SAT 91
--- NOTE | 2018-08-31 11:03 | P.PN ---
Subjective Date of Service: 08/31/18 Chief Complaint: Shortness of breath Subjective: Improving (Patient is a little better still complains of shortness of breath she is hypoxic room-air sat is only 88%) Review of Systems General: Weakness Respiratory: Shortness of Breath Physical Examination - Vital Signs Temperature: 98.8 F Blood Pressure: 124/72 Pulse: 73 Respirations: 16 Pulse Ox (%): 91 - Physical Exam General: Alert, In no apparent distress, Oriented x3 Respiratory: Clear to auscultation bilaterally Cardiovascular: No edema, Normal pulses, Normal S1 S2 Assessment & Plan - Problems (Diagnosis) (1) Shortness of breath Current Visit: Yes Status: Acute Plan: Patient still continues to be short of breath continue with bronchodilators steroids I have ordered a spirometry otherwise they'll and may need to be done as an outpatient and not sure why she is so hypoxic the possibility that she has a bronchiolitis echocardiogram is normal I doubt if this intracardiac shunt no evidence of proximal thromboemboli for cor pulmonale is going to need some oxygen to follow up with me next week
[2018-08-31 17:13] VITALS: BP 132/69; TEMP 97.8
--- NOTE | 2018-08-31 17:53 | PN ---
Date of Progress Note: 08/31/2018 Subjective: The patient is seen and examined. Chart reviewed and case discussed with RN and Dr. Vasu gibson. The patient continues to be hypoxic on room air. Clinically feeling better. Medications: List reviewed. Physical Examination: Vital Signs: Temperature 98.8, heart rate 73, blood pressure 124/72, respirations 16, O2 91% on 2 L via nasal cannula. General: Awake, alert, oriented x3, ill-appearing female, morbidly obese. CV: S1, S2. Regular rate and rhythm. Peripheral pulses present. Respiratory: Moving air well bilaterally. Minimally diminished breath sounds at the bases. No whee zing or crackles. Gastrointestinal: Abdomen is soft, nontender, nondistended. Positive bowel sounds . Extremities: No clubbing, cyanosis, or edema. Neurologic: Nonfocal. Laboratory Data: Blood cultures, no growth to date. Assessment And Plan: A 57-year-old female with: 1.Acute respiratory failure with hypoxia secondary to influenza, pneumonia and bronchitis, complicat ed by history of myasthenia gravis. Clinically improved significantly, however, still 88% on room ai r, was unable to qualify for home oxygen. Continue to wean off as tolerated. Appreciate Pulmonology input. 2.Influenza pneumonia. Continue Tamiflu. Cultures, blood cultures negative to date. 3.Myasthenia gravis, stable. The patient to follow up with Dr. Dick as an outpatient. 4.Paroxysmal atrial fibrillation, currently in sinus rhythm. INR is elevated at 4.49. We will hold Coumadin dose today. 5.Dyslipidemia. We will continue statin. 6.Morbid obesity, BMI 43. 7.Essential hypertension, stable. 8.Gastrointestinal and deep venous thrombosis prophylaxis, addressed. The patient is already on Cou madin with supratherapeutic INR. Plan: Continue to wean off oxygen as tolerated. Unclear etiology of hypoxia. CT angio does not kenji w any paroxysmal PE. INR is therapeutic. Echocardiogram does not show any abnormalities. No cor pu lmonale. Pulmonology has adjusted her bronchodilators. The patient stated that she has had PFTs in the past, which were normal. Likely discharge in the next 24 to 48 hours once off oxygen. SA/MODL Voice ID: [id number] Report ID: [id number]
[2018-08-31] MEDS ORDERED: predniSONE 20 MG TAB PO SCH (21:00)
--- NOTE | 2018-09-01 17:03 | DS ---
Date of Discharge: 08/31/2018 Consultants: Dr. Weir with Pulmonology. Admitting Diagnoses: 1.Acute respiratory failure with hypoxia. 2.Influenza pneumonia. 3.Myasthenia gravis. 4.Morbid obesity. Discharge Diagnoses: 1.Acute respiratory failure with hypoxia, resolved. 2.Influenza pneumonia, treated with Tamiflu. 3.Myasthenia gravis, stable. 4.Paroxysmal atrial fibrillation in sinus rhythm. 5.Coumadin coagulopathy. 6.Dyslipidemia. 7.Morbid obesity, BMI 43. 8.Essential hypertension. Hospital Course: The patient is a 57-year-old female with past medical history of myasthenia gravis, hypertension, atrial fibrillation, who comes in with fever and shortness of breath. The patient was in acute respiratory distress, required BiPAP. Initial O2 saturations were 40s to 50%. The patient was diagnosed with influenza A. She was started on Tamiflu. Her blood cultures remained negative. She was also seen by pulmonology due to her respiratory distress and failure. White count remained stable. Her D-dimer was negative. CT angio did not show any PE in the proximal branches. She did h ave some mild linear subsegmental atelectasis in the left lung base. The patient was slow to wean of f BiPAP, remained hypoxic, was then able to be placed on nasal cannula; however, was becoming dyspnei c upon exertion. The patient in the past has had PFTs, however, no obstructive airway disease was fo und. The patient was then given breathing treatments and steroids. She did improve and was able to be weaned off O2. Her saturations improved from 83-88 and then to 91% on room air. She was able to ambulate without difficulty. Her repeat chest x-ray showed no progressive finding from previous. Cl inically, she was significantly better. Echocardiogram showed an EF of 71% with no wall motion abnor mality, doubt any shunt problem. Regarding her INR, she did have a supratherapeutic INR at 4.49 on t day of discharge. No active bleeding. The patient says that she has been on 10 mg for over the p ast year and was actually requiring 11 mg dose previously. The patient was instructed to hold her Co umadin dose tonight and to have INR checked in the morning. The patient will come back to hospital f or INR check as her PCP's office will be closed. The patient was then stable for discharge. She was cleared from Pulmonology standpoint. Medications: As per medication reconciliation list, she will finish off course of Tamiflu. Will be on a steroid taper. Inhalers were given for the short period of time. While she recovers from the f jorge luis, her Coumadin dose was decreased. Primary care physician to adjust the Coumadin dose based on INR reading. Followup: Follow up with primary care physician in 2-3 days. Follow up with piece jobber, Dr. Dawn banuelos in 2 weeks. Return to ER for worsening condition. INR check in a.m. Diet: Heart healthy, calorie restricted diet. Activity: As tolerated. No strenuous activity. Total time spent discharging the patient was 37 minutes. Physical exam findings, please see progress note dictated on the day of discharge. The patient also to follow up with her neurologist Dr. Matthew kemp for her myasthenia gravis. /UDAY Voice ID: [id number] Report ID: [id number]
== END 2018-08-31 16:45 | disposition home or self-care (01) | DRG 193 ==
LOC: ER 07:31 → OBSVTOIN 10:18 → ERHOLD 10:18 → 3RD-ICU 12:27 → 4TH 08-29 13:50
PROVIDERS: ADMIT Family Medicine; ATTEND Family Medicine
PROC: 5A09457 Assistance with Respiratory Ventilation, 24-96 Consecutive Hours, Continuous Positive Airway Pressure (ICD-10-PCS; principal; 2018-08-27)
DX: J09.X1 Influenza due to identified novel influenza A virus with pneumonia (principal); J96.01 Acute respiratory failure with hypoxia; D68.32 Hemorrhagic disorder due to extrinsic circulating anticoagulants; Z68.41 Body mass index [BMI] 40.0-44.9, adult; J98.11 Atelectasis; G70.00 Myasthenia gravis without (acute) exacerbation; I48.0 Paroxysmal atrial fibrillation; T45.515A Adverse effect of anticoagulants, initial encounter; Y92.019 Unspecified place in single-family (private) house as the place of occurrence of the external cause; E78.5 Hyperlipidemia, unspecified; E66.01 Morbid (severe) obesity due to excess calories; I10 Essential (primary) hypertension; Z88.0 Allergy status to penicillin; Z86.711 Personal history of pulmonary embolism; Z79.01 Long term (current) use of anticoagulants; J40 Bronchitis, not specified as acute or chronic
CPT/HCPCS: 36415; 71045; 71275; 80048; 80053; 82805; 83605; 83880; 84145; 84484; 85025; 85379; 85610; 87040; 87804; 93005; 93306; 94640; 94660; 94760; 96360; 99284; J1650; J2920; J7030; Q9967

== ENCOUNTER 2018-11-04 15:24 | Inpatient (IN) | payer BC ==
--- OUTSIDE RECORDS SUMMARY | 2018-11-04 15:26 | XMS REPORT ---
:1960 [facility] Address [address] [place] [address] Dr. Zapata [address] [place] [id number] Care Team Providers Name Role Phone Unavailable Unavailable Unavailable Problems This patient has no known problems. Allergies, Adverse Reactions, Alerts This patient has no known allergies or adverse reactions. Medications This patient has no known medications.
[2018-11-04] MEDS ORDERED: ALBUTEROL 2.5 MG/3 ML NEB SOL ONE (16:20)
[2018-11-04] MEDS ORDERED: METHYLPREDNISOLONE 125 MG INJ ONE (16:20)
[2018-11-04] MEDS ORDERED: IPRATROPIUM BROM 0.5MG/2.5ML ONE ×2 (16:21→19:18)
[2018-11-04 16:38] LABS: Absolute Lymphocytes (CBC) 0.9 K/uL (0.7-4.9); Absolute Monocytes 0.5 K/uL (0.1-1.3); Absolute Neutrophil 7.5 K/uL (1.8-8.0); Basophils % 0.7 % (0-1.3); Hematocrit 43.6 % (36.0-45.0); Lymphocytes % 10.2 % (15.3-44.8); MPV 8.7 fL (7.6-11.3); Monocytes % 5.7 % (3.3-12.3); RBC Red Blood Cell Count 5.15 M/uL (3.86-4.86)
[2018-11-04] MEDS ORDERED: NA CHLORIDE 0.9% 2,000 ML ONE (16:49)
[2018-11-04] MEDS ORDERED: CEFTRIAXONE/SWI 1gm 1 GM/10 ML SYR ONE (16:49)
[2018-11-04 16:57] LABS: ALT/SGPT 20 U/L (12-78); AST/SGOT 13 U/L (15-37); Albumin 3.4 g/dL (3.4-5.0); Alkaline Phosphatase 102 U/L (45-117); BUN Blood Urea Nitrogen 9 mg/dL (7-18); Bicarbonate 26 mmol/L (21-32); Bilirubin Direct 0.1 mg/dL (0-0.2); Bilirubin Total 0.5 mg/dL (0.2-1.0); CKMB Creatine Kinase MB < 1.0 ng/mL (0.3-3.6); Creatine Phosphokinase 70 U/L (26-192); Glucose Level 106 mg/dL (74-106); Lipase 64 U/L (73-393); Potassium 3.6 mmol/L (3.5-5.1); Protein, Total 7.9 g/dL (6.4-8.2); Protime INR 4.22; Sodium Level 137 mmol/L (136-145); Troponin (Emerg Dept Use Only) < 0.02 ng/mL (0.0-0.045)
[2018-11-04] MEDS ORDERED: DOXYCYCLINE 100 MG in NA CHLORIDE 0.9% 100 ML IVPB SCH (17:00)
--- NOTE | 2018-11-04 17:08 | ER ---
Nurse's Notes [facility] Name: Herlinda Cruz Age: 57 yrs Sex: Female : 1960 Arrival Date: 11/04/2018 Time: 15:26 Bed 17 Private MD: Diagnosis: Pneumonia due to other specified bacteria;Sepsis Presentation: 11/04 15:52 Presenting complaint: Patient states: fever, SOB, cough that began . Pt states aa5 "I went to the doctor on Monday and they gave me tamiflu but I don't have the flu". Transition of care: patient was not received from another setting of care. Onset of symptoms was October 2018. Risk Assessment: Do you want to hurt yourself or someone else? Patient reports no desire to harm self or others. Care prior to arrival: None. 15:52 Method Of Arrival: Ambulatory aa5 15:52 Acuity: HOWARD 2 aa5 16:10 Initial Sepsis Screen: Does the patient meet any 2 criteria? RR > 20 per min. HR > 90 em bpm. Yes Does the patient have a suspected source of infection? Yes: Productive cough/pneumonia If YES to both, name of provider notified: Erick LLOYD. Historical: - Allergies: 15:54 Codeine; aa5 15:54 PENICILLINS; aa5 - Home Meds: 17:31 breo ellipta [Active]; pyridostigmine bromide 60 mg oral tab 0.5 tab every 8 hours em [Active]; oseltamivir oral oral 1 cap [Active]; losartan 100 mg oral tab 1 tab once daily [Active]; warfarin 10 mg Oral tab 1 tab once daily [Active]; ropinirole 2 mg oral tab 1 tab [Active]; atorvastatin 10 mg oral tab 1 tab once daily [Active]; - PMHx: 15:54 Myasthenia Gravis; Hypertension; Hyperlipidemia; aa5 - Immunization history:: Flu vaccine is up to date. - Social history:: Smoking status: Patient/guardian denies using tobacco. - Ebola Screening: : No symptoms or risks identified at this time. Screenin:26 Abuse screen: Denies threats or abuse. Nutritional screening: No deficits noted. em Tuberculosis screening: No symptoms or risk factors identified. Fall Risk None identified. Assessment: 15:58 Reassessment: PA at bedside . aa5 16:10 General: Appears uncomfortable, Behavior is cooperative, anxious, Reports fever for 2-3 em days. Pain: Denies pain. Neuro: Level of Consciousness is awake, alert, obeys commands, Oriented to person, place, time, situation. Cardiovascular: Heart tones S1 S2 present Capillary refill < 3 seconds Rhythm is sinus rhythm with PACs. Respiratory: Reports shortness of breath at rest cough that is non-productive, Airway is patent Respiratory effort is labored, Respiratory pattern is tachypnea Breath sounds are diminished bilaterally. Onset: The symptoms/episode began/occurred 3 days ago, the patient has severe shortness of breath. : Reports incontinence, with cough Denies burning with urination. Derm: Skin is intact, is healthy with good turgor, Skin is clammy, Skin is pink, Skin temperature is warm. Musculoskeletal: Range of motion: intact in all extremities. 16:15 General: The previous assessment is accurate, call light remains within reach. ss 16:57 Reassessment: Patient appears in no apparent distress at this time. Patient and/or em family updated on plan of care and expected duration. Pain level reassessed. Patient is alert, oriented x 3, equal unlabored respirations, skin warm/dry/pink. Patient states feeling better. Patient states symptoms have improved. 17:50 Reassessment: Patient appears in no apparent distress at this time. Patient and/or em family updated on plan of care and expected duration. Pain level reassessed. Patient is alert, oriented x 3, equal unlabored respirations, skin warm/dry/pink. Patient states feeling better. Patient states symptoms have improved. 18:50 Reassessment: Patient appears in no apparent distress at this time. Patient and/or em family updated on plan of care and expected duration. Pain level reassessed. Patient is alert, oriented x 3, equal unlabored respirations, skin warm/dry/pink. given 2 L NS 0.9% per sepsis protocol, provider notified. 19:10 Reassessment: Patient appears in no apparent distress at this time. Patient and/or em family updated on plan of care and expected duration. Pain level reassessed. Patient is alert, oriented x 3, equal unlabored respirations, skin warm/dry/pink. reports SOB again, provider notified, new medications ordered. 19:48 Reassessment: Patient and/or family updated on plan of care and expected duration. Pain ed1 level reassessed. Patient is alert, oriented x 3, equal unlabored respirations, skin warm/dry/pink. Patient states symptoms have improved. Vital Signs: 15:55 BP 157 / 92; Pulse 133; Resp 24 S; Temp 99.3(O); Pulse Ox 86% on R/A; aa5 15:58 Pulse Ox 89% on 4 lpm NC; aa5 16:33 Weight 124.74 kg (R); em 16:47 BP 134 / 81; Pulse 135; Resp 24; Pulse Ox 92% on 4 lpm NC; em 17:15 BP 119 / 47; Pulse 131; Resp 25; Pulse Ox 93% on 4 lpm NC; Pain 0/10; em 18:51 BP 119 / 57; Pulse 116; Resp 24 S; Pulse Ox 93% on 4 lpm NC; em 19:48 BP 135 / 74; Pulse 117; Resp 22; Temp 99.1(O); Pulse Ox 91% on 4 lpm NC; Pain 0/10; ed1 ED Course: 15:26 Patient arrived in ED. rg4 15:52 Arm band placed on. aa5 15:53 Triage completed. aa5 16:01 Horacio Mary LVN is Primary Nurse. em 16:04 Erick Singh PA is PHCP. jr8 16:04 Sascha Norman MD is Attending Physician. jr8 16:04 EKG done, by ED staff, reviewed by Sascha Norman MD. mh5 16:10 Patient has correct armband on for positive identification. Placed in gown. Bed in low em position. Call light in reach. Side rails up X2. recruitment advertising manager on. Pulse ox on. NIBP on. 16:44 Chest Single View XRAY In Process Unspecified. EDMS 17:07 Caryn Trevizo MD is Hospitalizing Provider. jr8 19:12 Primary Nurse role handed off by Horacio Mary LVN ed1 19:12 Shalini Velasquez, JUMA is Primary Nurse. ed1 19:16 No provider procedures requiring assistance completed. Patient admitted, IV remains in ss place. Administered Medications: 16:20 Drug: Albuterol - atroVENT (3:1) (2.5 mg - 0.5 mg) 3 ml Route: Nebulizer; em 17:00 Follow up: Response: No adverse reaction; Marked relief of symptoms em 16:25 Drug: SOLU-Medrol 125 mg Route: IVP; Site: right forearm; ss 17:00 Follow up: Response: No adverse reaction; Marked relief of symptoms em 16:40 Drug: NS 0.9% (30 ml/kg) 30 ml/kg Route: IV; Rate: bolus; Site: right forearm; em 18:50 Follow up: IV Status: Completed infusion; IV Intake: 2000ml em 16:45 Drug: Rocephin 1 grams Route: IV; Rate: calculated rate; Site: right forearm; ss 17:00 Follow up: Response: No adverse reaction; IV Status: Completed infusion; IV Intake: 10mlem 16:50 Drug: Doxycycline 100 mg Route: IV; Rate: calculated rate; Site: right forearm; em 19:25 Follow up: Response: No adverse reaction; IV Status: Completed infusion; IV Intake: em 100ml 19:11 Drug: Xopenex (3) 1.25 mg Route: Inhalation; ed1 19:12 Drug: AtroVENT Aerosol 0.5 mg Route: Inhalation; ed1 Intake: 17:00 IV: 10ml; Total: 10ml. em 18:50 IV: 2000ml; Total: 2010ml. em 19:25 IV: 100ml; Total: 2110ml. em Outcome: 17:08 Decision to Hospitalize by Provider. jr8 20:09 Admitted to Tele accompanied by tech, via wheelchair, room 406, with oxygen, with ed1 chart, Report called to JUMA Giordano 20:09 Condition: stable 20:09 Discharge instructions given to patient, Instructed on the need for admit, Demonstrated understanding of instructions. 20:10 Patient left the ED. ed1 Signatures: Dispatcher [employer] EDMS Horacio Mary, GROUP CARE WORKER GROUP CARE WORKER em Ammy Oviedo RN RN aa5 Kika Bullard RN RN ss Riggs, Erika, RN RN ed1 Erick Singh PA PA jr8 Nadia Lira4 Gina Rivera [facility] Corrections: (The following items were deleted from the chart) 15:55 15:52 Acuity: HOWARD 3 aa5 aa5
--- NOTE | 2018-11-04 17:09 | EDPHYS ---
Physician Documentation [facility] Name: Herlinda Cruz Age: 57 yrs Sex: Female : 1960 Arrival Date: 11/04/2018 Time: 15:26 Bed 17 Private MD: ED Physician Sascha Norman HPI: 11/04 16:34 This 57 yrs old Female presents to ER via Ambulatory with complaints of jr8 Breathing Difficulty. 16:34 The patient has shortness of breath at rest. Onset: The symptoms/episode began/occurred jr8 suddenly, 4 day(s) ago, and became worse and became persistent. Duration: The symptoms are continuous. The patient's shortness of breath is aggravated by coughing, light activity, supine position, walking. Associated signs and symptoms: Pertinent positives: non-productive cough, fever. Severity of symptoms: At their worst the symptoms were moderate in the emergency department the symptoms are unchanged. It is unknown whether or not the patient has had similar symptoms in the past. 16:34 The patient has been recently seen by a physician: the patient's primary care provider, lita with similar presenting complaints, Tested negative for influenza. Given Tamiflu . Historical: - Allergies: 15:54 Codeine; aa5 15:54 PENICILLINS; aa5 - Home Meds: 17:31 breo ellipta [Active]; pyridostigmine bromide 60 mg oral tab 0.5 tab every 8 hours em [Active]; oseltamivir oral oral 1 cap [Active]; losartan 100 mg oral tab 1 tab once daily [Active]; warfarin 10 mg Oral tab 1 tab once daily [Active]; ropinirole 2 mg oral tab 1 tab [Active]; atorvastatin 10 mg oral tab 1 tab once daily [Active]; - PMHx: 15:54 Myasthenia Gravis; Hypertension; Hyperlipidemia; aa5 - Immunization history:: Flu vaccine is up to date. - Social history:: Smoking status: Patient/guardian denies using tobacco. - Ebola Screening: : No symptoms or risks identified at this time. ROS: 16:34 Eyes: Negative for injury, pain, redness, and discharge, ENT: Negative for injury, jr8 pain, and discharge, Neck: Negative for injury, pain, and swelling, Cardiovascular: Negative for chest pain, palpitations, and edema, Abdomen/GI: Negative for abdominal pain, nausea, vomiting, diarrhea, and constipation, Back: Negative for injury and pain, MS/Extremity: Negative for injury and deformity, Skin: Negative for injury, rash, and discoloration, Neuro: Negative for headache, weakness, numbness, tingling, and seizure. 16:34 Respiratory: Positive for cough, with no reported sputum, dyspnea on exertion, shortness of breath, wheezing. Exam: 16:34 Eyes: Pupils equal round and reactive to light, extra-ocular motions intact. Lids and jr8 lashes normal. Conjunctiva and sclera are non-icteric and not injected. Cornea within normal limits. Periorbital areas with no swelling, redness, or edema. ENT: Nares patent. No nasal discharge, no septal abnormalities noted. Tympanic membranes are normal and external auditory canals are clear. Oropharynx with no redness, swelling, or masses, exudates, or evidence of obstruction, uvula midline. Mucous membranes moist. Neck: Trachea midline, no thyromegaly or masses palpated, and no cervical lymphadenopathy. Supple, full range of motion without nuchal rigidity, or vertebral point tenderness. No Meningismus. Abdomen/GI: Soft, non-tender, with normal bowel sounds. No distension or tympany. No guarding or rebound. No evidence of tenderness throughout. Back: No spinal tenderness. No costovertebral tenderness. Full range of motion. Skin: Warm, dry with normal turgor. Normal color with no rashes, no lesions, and no evidence of cellulitis. MS/ Extremity: Pulses equal, no cyanosis. Neurovascular intact. Full, normal range of motion. Neuro: Awake and alert, GCS 15, oriented to person, place, time, and situation. Cranial nerves II-XII grossly intact. Motor strength 5/5 in all extremities. Sensory grossly intact. Cerebellar exam normal. Normal gait. 16:34 Cardiovascular: Rate: tachycardic, Rhythm: regular, Pulses: Pulses are 2+ in right radial artery and left radial artery. Heart sounds: normal, normal S1and S2, no S3 or S4, no murmur, no rub, no gallop, Edema: is not appreciated. 16:34 Respiratory: moderate respiratory distress is noted, Respirations: labored breathing, tachypnea, Breath sounds: wheezing: expiratory that is moderate, is heard diffusely, Respiratory rate: 24 Vital Signs: 15:55 BP 157 / 92; Pulse 133; Resp 24 S; Temp 99.3(O); Pulse Ox 86% on R/A; aa5 15:58 Pulse Ox 89% on 4 lpm NC; aa5 16:33 Weight 124.74 kg (R); em 16:47 BP 134 / 81; Pulse 135; Resp 24; Pulse Ox 92% on 4 lpm NC; em 17:15 BP 119 / 47; Pulse 131; Resp 25; Pulse Ox 93% on 4 lpm NC; Pain 0/10; em 18:51 BP 119 / 57; Pulse 116; Resp 24 S; Pulse Ox 93% on 4 lpm NC; em 19:48 BP 135 / 74; Pulse 117; Resp 22; Temp 99.1(O); Pulse Ox 91% on 4 lpm NC; Pain 0/10; ed1 MDM: 16:04 Patient medically screened. [facility] 17:07 Data reviewed: vital signs, nurses notes, lab test result(s), EKG, radiologic studies, jr8 plain films. Data interpreted: Pulse oximetry: on room air is 86 %. Interpretation: hypoxia. Counseling: I had a detailed discussion with the patient and/or guardian regarding: the historical points, exam findings, and any diagnostic results supporting the discharge/admit diagnosis, lab results, radiology results, the need for further work-up and treatment in the hospital. Physician consultation: Caryn Trevizo MD was called at 17:07, was contacted at 17:07, regarding admission, to the telemetry unit. and will see patient. 11/04 16:07 Order name: Basic Metabolic Panel; Complete Time: 16:58 11/04 16:07 Order name: Blood Culture Adult (2) 11/04 16:07 Order name: CBC with Diff; Complete Time: 16:45 11/04 16:07 Order name: Ckmb; Complete Time: 16:58 11/04 16:07 Order name: CPK; Complete Time: 16:58 11/04 16:07 Order name: Lactate; Complete Time: 16:57 11/04 16:07 Order name: LFT's; Complete Time: 16:58 11/04 16:07 Order name: Lipase; Complete Time: 16:58 11/04 16:07 Order name: Procalcitonin; Complete Time: 17:13 11/04 16:07 Order name: Protime (+inr); Complete Time: 16:58 11/04 16:07 Order name: Ptt, Activated; Complete Time: 16:58 11/04 16:07 Order name: Troponin (emerg Dept Use Only); Complete Time: 16:58 11/04 16:07 Order name: Urine Microscopic Only 11/04 16:07 Order name: Chest Single View XRAY; Complete Time: 17:23 11/04 16:07 Order name: Accucheck; Complete Time: 16:32 11/04 16:07 Order name: Cardiac monitoring; Complete Time: 16:32 11/04 16:07 Order name: EKG - Nurse/Tech; Complete Time: 16:32 11/04 16:07 Order name: IV Saline Lock - Large Bore; Complete Time: 16:32 11/04 16:07 Order name: Labs collected and sent; Complete Time: 16:32 11/04 16:07 Order name: O2 Per Protocol; Complete Time: 16:32 11/04 16:07 Order name: O2 Sat Monitoring; Complete Time: 16:32 Administered Medications: 16:20 Drug: Albuterol - atroVENT (3:1) (2.5 mg - 0.5 mg) 3 ml Route: Nebulizer; em 17:00 Follow up: Response: No adverse reaction; Marked relief of symptoms em 16:25 Drug: SOLU-Medrol 125 mg Route: IVP; Site: right forearm; ss 17:00 Follow up: Response: No adverse reaction; Marked relief of symptoms em 16:40 Drug: NS 0.9% (30 ml/kg) 30 ml/kg Route: IV; Rate: bolus; Site: right forearm; em 18:50 Follow up: IV Status: Completed infusion; IV Intake: 2000ml em 16:45 Drug: Rocephin 1 grams Route: IV; Rate: calculated rate; Site: right forearm; ss 17:00 Follow up: Response: No adverse reaction; IV Status: Completed infusion; IV Intake: 10mlem 16:50 Drug: Doxycycline 100 mg Route: IV; Rate: calculated rate; Site: right forearm; em 19:25 Follow up: Response: No adverse reaction; IV Status: Completed infusion; IV Intake: em 100ml 19:11 Drug: Xopenex (3) 1.25 mg Route: Inhalation; ed1 19:12 Drug: AtroVENT Aerosol 0.5 mg Route: Inhalation; ed1 Disposition: 11/05 08:57 Co-signature as Attending Physician, Sascha Norman MD I agree with the assessment and jose plan of care. Disposition: 11/04/18 17:08 Hospitalization ordered by Caryn Trevizo for Inpatient Admission. Preliminary diagnosis are Pneumonia due to other specified bacteria, Sepsis. - Bed requested for Telemetry/MedSurg (Inpatient). - Status is Inpatient Admission. ed1 - Condition is Fair. - Problem is new. - Symptoms have improved. UTI on Admission? No Signatures: Dispatcher [employer] EDAnastasia Kruger, RN RN Sascha Tracey MD MD cha Munoz, Horacio, SALES REPRESENTATIVE CONSULTANT SALES REPRESENTATIVE CONSULTANT Ammy Oviedo RN RN aa5 Kika Bullard RN RN Shalini Velasquez RN RN ed1 Erick Singh PA PA jr8 Corrections: (The following items were deleted from the chart) 11/04 16:35 16:34 The patient has not recently seen a physician, lita jrNicho 18:17 17:08 Hospitalization Ordered by Caryn Trevizo MD for Inpatient Admission. Preliminary dw diagnosis is Pneumonia due to other specified bacteria; Sepsis. Bed requested for Telemetry/MedSurg (Inpatient). Status is Inpatient Admission. Condition is Fair. Problem is new. Symptoms have improved. UTI on Admission? No. jr8 20:10 18:17 11/04/2018 17:08 Hospitalization Ordered by Caryn Trevizo MD for Inpatient ed1 Admission. Preliminary diagnosis is Pneumonia due to other specified bacteria; Sepsis. Bed requested for Telemetry/MedSurg (Inpatient). Status is Inpatient Admission. Condition is Fair. Problem is new. Symptoms have improved. UTI on Admission? No. dw
--- NOTE | 2018-11-04 17:20 | RAD REPORT ---
EXAM DESCRIPTION: RAD - Chest Single View - 11/04/2018 4:44 pm CLINICAL HISTORY: Fever, shortness of breath COMPARISON: August 30 TECHNIQUE: AP portable chest image was obtained 1639 hours . FINDINGS: Lung volumes are low. Large body habitus, shallow inspiration and portable technique are l imiting. Right lung field appears clear. There is no failure or volume overload. Left base is much mo re hazy with partially obscured left hemidiaphragm and left heart border. There is some natural incre ased opacification in this region on portable imaging. However, finding is suspected for a left base pneumonia. Heart and vasculature are normal. No measurable pleural effusion and no pneumothorax. No acute bony abnormality seen. No acute aortic findings suspected. IMPRESSION: Left lung base pneumonia
--- NOTE | 2018-11-04 18:59 | P.HP ---
Certification for Inpatient Patient admitted to: Inpatient Practitioner: I am a practitioner with admitting privileges, knowledge of patient current condition, hospital course, and medical plan of care. Services: Services provided to patient in accordance with Admission requirements found in Title 42 Section 412.3 of the Code of Federal Regulations Patient History Date of Service: 11/04/18 Reason for admission: Pneumonia, sepsis History of Present Illness: This is a 57-year-old female with history of myasthenia gravis, morbid obesity, paroxysmal atrial fibrillation admitted for sepsis and pneumonia. Per patient, She has been having body aches, fevers, chills for the past 4 days that has been progressively worsening. She did go to her PCP on monday, was tested negative for te flu but given Tamiflu due to her symptoms. She really did not start taking her tamiflu until recently. In the ER, her blood pressure 134/81, she was tachycardic at 135, tachypneic at 24, and saturating 92% on 4 L nasal cannula. Her labs remarkable for INR 4.22, elevated and his left shift. Her pro calcitonin and lactate were negative. Her chest x-ray with evidence of a right lower lobe pneumonia. She was given doxycycline and Rocephin. At the time of my exam, she was alert oriented x3, in no acute distress. She was on nasal canula, 4 L, satting well. Allergies codeine [Codeine] Allergy (Verified 08/27/18 13:14) Hives Penicillins Allergy (Verified 08/27/18 13:14) Hives/Rash Home medications list reviewed: Yes Home Medications: Guaifenesin [Mucinex] 600 mg PO Q12HP PRN 08/27/18 Pyridostigmine [place] [Mestinon*] 60 mg PO Q8H 08/27/18 Atorvastatin Calcium [Lipitor*] 1 tab PO BEDTIME 08/28/18 Losartan Potassium [Cozaar*] 100 mg PO DAILY 08/28/18 Albuterol Inhaler [Ventolin Inhaler*] 2 puff IH Q6H PRN #1 hfa.aer.ad 08/31/18 Oseltamivir Phosphate [Tamiflu] 75 mg PO BID #3 capsule 08/31/18 Tiotropium [Spiriva Handihaler] 18 mcg IH DAILY #30 cap.w.dev 02/08/19 Warfarin Sodium [Coumadin*] 5 mg PO DAILY 5 PM #30 tab 08/31/18 predniSONE [Deltasone*] 10 mg PO BID #14 tab 08/31/18 - Past Medical/Surgical History Diabetic: No -: Myasthenia gravis -: Atrial fibrillation -: History of PE -: bilateral eye sx -: ankle sx - Social History Alcohol use: No CD- Drugs: No Caffeine use: No Review of Systems 10-point ROS is otherwise unremarkable Physical Examination - Physical Exam General: Alert, In no apparent distress, Oriented x3, Obese HEENT: Atraumatic, PERRLA, Mucous membr. moist/pink, EOMI, Sclerae nonicteric Neck: Supple, 2+ carotid pulse no bruit, No LAD, Without JVD or thyroid abnormality Respiratory: Diminished, Crackles/rales Cardiovascular: Normal S1 S2, Irregular heart rate/rhythm (Tachycardic) Gastrointestinal: Normal bowel sounds, No tenderness Musculoskeletal: No tenderness Integumentary: No rashes Neurological: Normal gait, Normal speech, Normal strength at 5/5 x4 extr, Normal tone, Normal affect Lymphatics: No axilla or inguinal lymphadenopathy - Studies Laboratory Data (last 24 hrs) 11/04/18 16:20: PT 47.1 H, INR 4.22 H*, APTT 64.0 H 11/04/18 16:20: WBC 9.2, Hgb 14.4, Hct 43.6, Plt Count 230 11/04/18 16:20: Sodium 137, Potassium 3.6, BUN 9, Creatinine 0.70, Glucose 106, Total Bilirubin 0.5, AST 13 L, ALT 20, Alkaline Phosphatase 102, Lipase 64 L Assessment and Plan - Problems (Diagnosis) (1) Right lower lobe pneumonia Current Visit: Yes Status: Acute Qualifiers: Pneumonia type: due to unspecified organism Qualified Code(s): J18.1 - Lobar pneumonia, unspecified organism (2) Morbid obesity Current Visit: Yes Status: Acute (3) Hypertension Current Visit: Yes Status: Acute (4) Paroxysmal atrial fibrillation Current Visit: Yes Status: Chronic (5) Myasthenia gravis Onset Date: 08/28/18 Current Visit: No Status: Chronic (6) Warfarin-induced coagulopathy Current Visit: Yes Status: Acute - Plan Sepsis Pneumonia Start IV fluids. IV antibiotics with doxycycline and Rocephin. Due to her myasthenia gravis history, avoid Floxacin Warfarin coagulopathy Hold Coumadin Repeat labs in the morning Myasthenia gravis history No acute flare-ups at this time. Stable. Will restart home medications once reconciled Hypertension Stable, will restart home medications as tolerated Paroxysmal atrial fibrillation, in sinus rhythm In normal sinus rhythm. Will restart rate controlled. Will hold anticoagulation as noted above. DVT prophylaxis: None. Hold as above GI prophylaxis: None Diet: Heart healthy Disposition: Admit to the floor with tele. Pending symptomatic improvement - Advance Directives Does patient have a Living Will: No Does patient have a Durable POA for Healthcare: No
[2018-11-04] MEDS ORDERED: LEVALBUTEROL 1.25 MG/3 ML NEB ONE (19:19)
[2018-11-04] MEDS ORDERED: CEFTRIAXONE 1 GM/NS 50 ML 1 GM/50 ML BAG IV SCH (21:11)
[2018-11-04] MEDS: IPRATROPIUM BROM 0.5MG/2.5ML NEB SCH ×2 (21:20→23:20)
[2018-11-04] MEDS: LEVALBUTEROL 1.25 MG/3 ML NEB NEB SCH ×2 (21:20→23:20)
[2018-11-04 21:50] VITALS: BMI 117.1
[2018-11-05] MEDS: NA CHLORIDE 0.9% 1,000 ML IV SCH ×2 (02:03→15:20)
[2018-11-05] MEDS: METHYLPREDNISOLONE 125 MG INJ IV SCH ×4 (02:32→17:31)
[2018-11-05] MEDS ORDERED: PYRIDOSTIGMINE 60 MG TABLET PO ONE ×2 (03:00→08:00)
[2018-11-05] MEDS: IPRATROPIUM BROM 0.5MG/2.5ML NEB SCH ×5 (03:30→20:00)
[2018-11-05] MEDS: LEVALBUTEROL 1.25 MG/3 ML NEB NEB SCH ×5 (03:30→20:00)
[2018-11-05] MEDS ORDERED: DIPHENHYDRAMINE 25 MG TAB/CAP PO ONE ×2 (03:38→22:50)
[2018-11-05] MEDS ORDERED: ACETAMINOPHEN 325 MG TABLET PO ONE (03:39)
[2018-11-05 05:52] LABS: Urine Appearance CLEAR; Urine Bilirubin NEGATIVE (NEG); Urine Blood NEGATIVE (NEG); Urine Color YELLOW; Urine Glucose NEGATIVE (NEG); Urine Protein NEGATIVE (NEG); Urine Urobilinogen 0.2 mg/dL (0.2-1.0)
[2018-11-05 06:02] LABS: Urine Microscopic Reflex NO UMIC
[2018-11-05 06:14] LABS: Absolute Lymphocytes (CBC) 0.3 K/uL (0.7-4.9); Absolute Monocytes 0.1 K/uL (0.1-1.3); Absolute Neutrophil 6.9 K/uL (1.8-8.0); Basophils % 0.1 % (0-1.3); Hematocrit 37.9 % (36.0-45.0); MPV 8.9 fL (7.6-11.3); Monocytes % 1.6 % (3.3-12.3); RBC Red Blood Cell Count 4.52 M/uL (3.86-4.86)
[2018-11-05 06:24] LABS: Protime INR 4.17
[2018-11-05 06:34] LABS: ALT/SGPT 17 U/L (12-78); AST/SGOT 11 U/L (15-37); Albumin 3.2 g/dL (3.4-5.0); Alkaline Phosphatase 84 U/L (45-117); BUN Blood Urea Nitrogen 9 mg/dL (7-18); Bicarbonate 26 mmol/L (21-32); Bilirubin Total 0.4 mg/dL (0.2-1.0); Glucose Level 149 mg/dL (74-106); Potassium 3.7 mmol/L (3.5-5.1); Protein, Total 7.3 g/dL (6.4-8.2); Sodium Level 140 mmol/L (136-145)
[2018-11-05 06:57] LABS: Blood Morphology Comment NOT SEEN (NOT SEEN); Platelet Estimate ADEQ; Urine White Blood Cell Casts OK
[2018-11-05] MEDS: HOME MED 1 EA UNK (Fluticasone/Vilanterol [Breo Ellipta 200-25 Mcg Inh] 1 PUFF) IH SCH (08:09)
--- NOTE | 2018-11-05 08:17 | EKG ---
Test Date: 2018-11-04 Test Time: 16:44:19 Button Breaker: MARYANN MEASUREMENT RESULTS: Intervals: Rate: 136 NM: 144 QRSD: 88 QT: 278 QTc: 418 [place]: P: 11 NM: 144 QRS: -80 T: 32 INTERPRETIVE STATEMENTS: Sinus tachycardia with premature atrial complexes Left axis deviation Incomplete right bundle branch block Septal infarct, age undetermined Possible Lateral infarct, age undetermined Abnormal ECG Compared to ECG 08/27/2018 07:49:43 Myocardial infarct finding now present Sinus rhythm no longer present Ventricular premature complex(es) no longer present Electronically Signed On 11-05-18 08:16:32 CDT by Amos Oneil
--- NOTE | 2018-11-05 08:23 | RAD REPORT ---
EXAM DESCRIPTION: RAD - Chest Pa And Lat (2 Views) - 11/05/2018 7:44 am CLINICAL HISTORY: PNA Chest pain. COMPARISON: Chest Single View dated 11/04/2018; Chest Single View dated 08/30/2018; Chest Single View d ated 08/29/2018; Chest Single View dated 08/27/2018 FINDINGS: The left lung base aeration appears mildly improved since comparative study. Linear opacit ies in the left mid lung and medial left lung base persists. The heart is moderately enlarged in size . No displaced fractures. IMPRESSION: Mild improvement in left lung base aeration since comparative study.
[2018-11-05] MEDS ORDERED: CEFTRIAXONE 1 GM/NS 50 ML 1 GM/50 ML BAG IV SCH (09:00)
[2018-11-05] MEDS: LOSARTAN POTASSIUM 50 MG TABLET PO SCH (09:29)
[2018-11-05] MEDS: DOXYCYCLINE 100 MG in NA CHLORIDE 0.9% 100 ML IVPB SCH ×2 (09:30→21:33)
[2018-11-05] MEDS: CEFTRIAXONE/SWI 1gm 1 GM/10 ML SYR IV SCH ×2 (09:30→21:33)
[2018-11-05] MEDS ORDERED: ACETAMINOPHEN 500 MG TAB PO PRN (09:59)
--- NOTE | 2018-11-05 12:26 | P.PN ---
Subjective Date of Service: 11/05/18 Chief Complaint: Pneumonia, sepsis Subjective: Improving Patient seen and examined at bedside. No family at bedside. Chart reviewed and case discussed with nursing staff. Patient was admitted for sepsis and pneumonia. Requiring venturi mask for oxygen Complains of the headache No acute events noted overnight; afebrile overnight Review of Systems 10-point ROS is otherwise unremarkable Physical Examination - Vital Signs Temperature: 97.2 F Blood Pressure: 130/73 Pulse: 99 Respirations: 20 Pulse Ox (%): 94 - Physical Exam General: Alert, Oriented x3, Mild distress Respiratory: Diminished, Crackles/rales Cardiovascular: Regular rate/rhythm, Normal S1 S2 Gastrointestinal: Normal bowel sounds, No tenderness - Studies Laboratory Data (last 24 hrs) 11/04/18 16:20: PT 47.1 H, INR 4.22 H*, APTT 64.0 H 11/04/18 16:20: WBC 9.2, Hgb 14.4, Hct 43.6, Plt Count 230 11/04/18 16:20: Sodium 137, Potassium 3.6, BUN 9, Creatinine 0.70, Glucose 106, Total Bilirubin 0.5, AST 13 L, ALT 20, Alkaline Phosphatase 102, Lipase 64 L Assessment And Plan - Current Problems (Diagnosis) (1) Acute respiratory distress Current Visit: Yes Status: Acute (2) Right lower lobe pneumonia Current Visit: Yes Status: Acute Qualifiers: Pneumonia type: due to unspecified organism Qualified Code(s): J18.1 - Lobar pneumonia, unspecified organism (3) Warfarin-induced coagulopathy Current Visit: Yes Status: Acute (4) Paroxysmal atrial fibrillation Current Visit: Yes Status: Chronic (5) Hypertension Current Visit: Yes Status: Acute (6) Myasthenia gravis Onset Date: 08/28/18 Current Visit: No Status: Chronic (7) Morbid obesity Current Visit: Yes Status: Chronic - Plan Sepsis Pneumonia Acute respiratory distress Discontinue IV fluids. IV antibiotics with doxycycline and Rocephin. Due to her myasthenia gravis history, avoid Floxacins Repeat chest x-ray with mild improvement in left lung base Continue oxygen as needed. We will attempt to wean as tolerated Warfarin coagulopathy Continue to Hold Coumadin Repeat labs with improved INR, though still elevated. Will recheck tomorrow morning Myasthenia gravis history No acute flare-ups at this time. Stable. Will continue home medications Hypertension Stable, will continue home medications as tolerated Paroxysmal atrial fibrillation, in sinus rhythm Irregular, though seems to be rate controlled at this time. Will continue to hold anticoagulation as noted above. We will continue to monitor via tele DVT prophylaxis: Hold as above GI prophylaxis: None Diet: Heart healthy Disposition: Pending symptomatic improvement
[2018-11-05] MEDS ORDERED: PYRIDOSTIGMINE 60 MG TABLET PO SCH (14:00)
[2018-11-05] MEDS: PYRIDOSTIGMINE 60 MG TABLET PO SCH ×2 (15:38→23:15)
[2018-11-05] MEDS: ROPINIROLE HCL 2 MG PO SCH (21:34)
[2018-11-05] MEDS: ATORVASTATIN 10 MG TAB PO SCH (21:34)
[2018-11-06] MEDS: METHYLPREDNISOLONE 125 MG INJ IV SCH ×4 (00:02→17:47)
[2018-11-06] MEDS: IPRATROPIUM BROM 0.5MG/2.5ML NEB SCH ×6 (00:05→20:27)
[2018-11-06] MEDS: LEVALBUTEROL 1.25 MG/3 ML NEB NEB SCH ×6 (00:05→20:27)
[2018-11-06] MEDS: PYRIDOSTIGMINE 60 MG TABLET PO SCH ×3 (05:31→22:07)
[2018-11-06 07:15] LABS: Absolute Lymphocytes (CBC) 0.5 K/uL (0.7-4.9); Absolute Monocytes 0.2 K/uL (0.1-1.3); Basophils % 0.1 % (0-1.3); Hematocrit 38.2 % (36.0-45.0); Lymphocytes % 6.7 % (15.3-44.8); MPV 8.9 fL (7.6-11.3); Monocytes % 3.2 % (3.3-12.3); RBC Red Blood Cell Count 4.53 M/uL (3.86-4.86)
[2018-11-06 07:16] LABS: Protime INR 3.77
[2018-11-06 07:44] LABS: ALT/SGPT 19 U/L (12-78); AST/SGOT 17 U/L (15-37); Albumin 3.2 g/dL (3.4-5.0); Alkaline Phosphatase 82 U/L (45-117); BUN Blood Urea Nitrogen 9 mg/dL (7-18); Bicarbonate 26 mmol/L (21-32); Bilirubin Total 0.3 mg/dL (0.2-1.0); Glucose Level 138 mg/dL (74-106); Potassium 3.9 mmol/L (3.5-5.1); Protein, Total 7.3 g/dL (6.4-8.2); Sodium Level 142 mmol/L (136-145)
[2018-11-06] MEDS ORDERED: POTASSIUM CL SA 10 MEQ TAB PO ONE (07:56)
[2018-11-06] MEDS: LOSARTAN POTASSIUM 50 MG TABLET PO SCH (08:06)
[2018-11-06] MEDS: CEFTRIAXONE/SWI 1gm 1 GM/10 ML SYR IV SCH ×2 (08:07→22:05)
[2018-11-06] MEDS: HOME MED 1 EA UNK (Fluticasone/Vilanterol [Breo Ellipta 200-25 Mcg Inh] 1 PUFF) IH SCH (08:08)
[2018-11-06] MEDS: DOXYCYCLINE 100 MG in NA CHLORIDE 0.9% 100 ML IVPB SCH ×2 (08:40→22:05)
[2018-11-06] MEDS ORDERED: NA CHLORIDE 0.9% 1,000 ML IV ONE (10:55)
[2018-11-06] MEDS: Fluticasone/Vilanterol (Breo Ellipta) 200-25 Mcg Inh IH SCH (11:06)
--- NOTE | 2018-11-06 16:46 | PN ---
Date of Progress Note: 11/06/2018 Subjective: The patient is seen and examined. Chart reviewed and case discussed with RN. The patient's questions answered, all treatment plan explained. Medications: List reviewed. Physical Examination: Vital Signs: Temperature 97.6, heart rate 96, blood pressure 149/80, respirations 20, O2 97% on 4 L via nasal cannula. General: Awake, alert, oriented x3, not in any acute distress, who is in some mild respiratory distress, obese female. BMI 44.4. CV: S1, S2. Sinus tachycardia. No murmurs. Peripheral pulses present. Respiratory: Diminished breath sounds. No wheezing or stridor. Gastrointestinal: Abdomen is soft, nontender, nondistended. Positive bowel sounds. Extremities: No clubbing, cyanosis, or edema. Neurologic: Nonfocal. Cranial nerves 2 through 12 intact grossly. No focal neurological deficit. Speech is normal. Laboratory Data: Sodium 142, potassium 3.9, chloride 110, CO2 of 26, BUN 9, creatinine 0.56, glucose 138, lactate 3.5, calcium 8.9, albumin 3.2. WBC 7.8, H and H 12.7 and 38.2, platelets 237, neutrophils 90%. INR is 3.77. Chest x- ray from the shows mild improvement in left lung base aeration since comparative study. Assessment And Plan: A 57-year-old female with: 1. Sepsis secondary to pneumonia. The patient again flagging for sepsis due to high heart rate. Repeat lactate is elevated as well at 3.5. We will give IV fluid bolus and repeat lactate in 4 hours. 2. Pneumonia. Chest x-ray shows some improvement. Blood cultures are negative to date. Sputum culture is pending. 3. Diarrhea, loose stools. Clostridium difficile pending. 4. Acute respiratory distress secondary to pneumonia and sepsis. The patient is on 4 L via nasal cannula. The patient has history of myasthenia gravis. For her pneumonia, we will continue doxycycline and Rocephin. Avoid fluoroquinolones due to history of myasthenia gravis. 5. Warfarin coagulopathy. INR still supratherapeutic at 3.77. We will continue to monitor INR. Restart Coumadin once INR is below 3. 6. Paroxysmal atrial fibrillation. 7. Essential hypertension, stable. 8. Myasthenia gravis. Continue home medication. 9. Morbid obesity. BMI 44.4. 10. Deep venous thrombosis prophylaxis. Anticoagulation on hold due to Coumadin coagulopathy. We will recheck lactate in 4 hours. 11. VALENTÍN RIOS/UDAY Voice ID: [id number] Report ID: [id number] MTDD
[2018-11-06] MEDS: VANCOMYCIN ORAL SOLN 250 MG/5 ML OSYR PO SCH (17:47)
[2018-11-06] MEDS ORDERED: NA CHLORIDE 0.9% 500 ML IV ONE (21:33)
[2018-11-06] MEDS ORDERED: NA CHLORIDE 0.9% 500 ML ONE (21:59)
[2018-11-06] MEDS: ROPINIROLE HCL 2 MG PO SCH (22:07)
[2018-11-06] MEDS: ATORVASTATIN 10 MG TAB PO SCH (22:07)
[2018-11-07] MEDS: VANCOMYCIN ORAL SOLN 250 MG/5 ML OSYR PO SCH ×4 (00:19→17:02)
[2018-11-07] MEDS: METHYLPREDNISOLONE 125 MG INJ IV SCH ×3 (00:19→11:24)
[2018-11-07] MEDS: IPRATROPIUM BROM 0.5MG/2.5ML NEB SCH ×6 (00:54→19:32)
[2018-11-07] MEDS: LEVALBUTEROL 1.25 MG/3 ML NEB NEB SCH ×6 (00:54→19:32)
[2018-11-07 05:02] LABS: Absolute Lymphocytes (CBC) 0.6 K/uL (0.7-4.9); Absolute Monocytes 0.3 K/uL (0.1-1.3); Absolute Neutrophil 5.8 K/uL (1.8-8.0); Basophils % 0.1 % (0-1.3); Hematocrit 36.5 % (36.0-45.0); Lymphocytes % 8.8 % (15.3-44.8); MPV 8.9 fL (7.6-11.3); Monocytes % 4.1 % (3.3-12.3); RBC Red Blood Cell Count 4.32 M/uL (3.86-4.86)
[2018-11-07 05:03] LABS: Protime INR 2.69
[2018-11-07 05:15] LABS: ALT/SGPT 24 U/L (12-78); AST/SGOT 19 U/L (15-37); Albumin 3.1 g/dL (3.4-5.0); Alkaline Phosphatase 71 U/L (45-117); BUN Blood Urea Nitrogen 10 mg/dL (7-18); Bicarbonate 29 mmol/L (21-32); Bilirubin Total 0.2 mg/dL (0.2-1.0); Glucose Level 133 mg/dL (74-106); Potassium 4.2 mmol/L (3.5-5.1); Protein, Total 6.9 g/dL (6.4-8.2); Sodium Level 145 mmol/L (136-145)
[2018-11-07] MEDS: PYRIDOSTIGMINE 60 MG TABLET PO SCH ×3 (06:29→20:50)
[2018-11-07] MEDS: LOSARTAN POTASSIUM 50 MG TABLET PO SCH (08:03)
[2018-11-07] MEDS: CEFTRIAXONE/SWI 1gm 1 GM/10 ML SYR IV SCH ×2 (08:03→20:49)
[2018-11-07] MEDS: Fluticasone/Vilanterol (Breo Ellipta) 200-25 Mcg Inh IH SCH (08:04)
[2018-11-07] MEDS: DOXYCYCLINE 100 MG in NA CHLORIDE 0.9% 100 ML IVPB SCH (09:25)
[2018-11-07] MEDS ORDERED: NA CHLORIDE 0.9% 1,000 ML IV ONE (11:15)
--- NOTE | 2018-11-07 12:35 | P.CNS ---
Date of Consult: 11/07/18 Chief Complaint: Shortness of breath shortness of breath History of Present Illness: patient is 57 years of age admitted with acute onset of shortness of breath that started last became progressively worse patient Um also had developed diarrhea admitted to the hospital has wheezing patient has a chronic cough nonproductive was compliant with her Breo chest x-ray shows some interstitial changes patient was compliant with her medication Allergies codeine [Codeine] Allergy (Verified 08/27/18 13:14) Hives Penicillins Allergy (Verified 08/27/18 13:14) Hives/Rash Home Medications: Pyridostigmine Butler [Mestinon*] 60 mg PO Q8H 08/27/18 Atorvastatin Calcium [Lipitor*] 1 tab PO BEDTIME 08/28/18 Losartan Potassium [Cozaar*] 100 mg PO DAILY 08/28/18 Warfarin Sodium [Coumadin*] 5 mg PO DAILY 5 PM #30 tab 08/31/18 Fluticasone/Vilanterol [Breo Ellipta 200-25 Mcg INH] 1 puff IH DAILY 11/05/18 Ropinirole HCl [Requip Xl] 2 mg PO BEDTIME 11/05/18 - Past Medical/Surgical History Diabetic: No -: Myasthenia gravis -: Atrial fibrillation -: History of PE -: Restless leg syndrome -: Hyperlipidemia -: Hypertension -: bilateral eye sx -: ankle sx -: bilateral lasix eye sx -: hernia repair with lapband - Family History Mother Medical History: Heart disease, Hypertension, GI disease, Cancer, Kidney disease Notes: IBS/ Luekemia/ Kidney cancer Father Medical History: Heart disease, Cancer Notes: Afib/ Melanoma Sister Medical History: Cancer Notes: Stomach cancer - Social History Alcohol use: No CD- Drugs: No Caffeine use: No Place of Residence: Home Review of Systems General: Weakness Respiratory: Cough, Shortness of Breath Physical Examination Temp Pulse Resp BP Pulse Ox 97.9 F 99 H 18 121/65 91 11/07/18 12:00 11/07/18 12:00 11/07/18 12:00 11/07/18 12:00 11/07/18 12:00 General: Alert, In no apparent distress, Oriented x3 Respiratory: Expiratory wheezes Cardiovascular: No edema, Normal S1 S2 Gastrointestinal: Normal bowel sounds, Soft and benign - Problems (1) Shortness of breath Current Visit: No Status: Acute Plan: Patient is 57 years of age admitted with worsening shortness of breath he has audible wheezing doubt pneumonia some interstitial change from the CT scan normal white count chemistries unremarkable apart from elevated lactic acid patient is hypoxic otherwise vital signs are stable
[2018-11-07] MEDS: METHYLPREDNISOLONE 40 MG INJ IV SCH (17:02)
[2018-11-07] MEDS: WARFARIN SODIUM 5 MG TAB PO SCH (17:02)
--- NOTE | 2018-11-07 20:18 | PN ---
Date of Progress Note: 11/07/2018 Patient seen and examined. Chart reviewed and case discussed with RN and Dr. Weir. Patient is s till having some shortness of breath and especially with exertion. Overall feels better. Medications: List reviewed. Physical Examination: Vital Signs: Temperature 97.9, heart rate 92, blood pressure 134/80, respirations 18, O2 of 92% on 2 L via nasal cannula. General: Awake, alert, oriented x3, ill-appearing female, some mild respiratory distress. Morbidly obese, BMI 44. CV: S1, S2. Regular rate and rhythm. Peripheral pulses present. Respiratory: Diminished breath sounds. Wheezing heard throughout. Gastrointestinal: Abdomen is soft, nontender, nondistended. Positive bowel sounds. No guarding or rigidity. Extremities: No clubbing, cyanosis, or edema. Neurologic: Nonfocal. Laboratory Data: Sodium 145, potassium 4.2, chloride 111, CO2 of 29, BUN 10, creatinine 0.55, glucos e 133, lactate 4.4, repeat lactate is 3.3, calcium 8.8. WBC 6.6, hemoglobin 12.2, hematocrit 36.5, p latelets 255, neutrophils 87%. Blood cultures, no growth to date. C. diff assay is positive. Sputu m culture pending. Assessment And Plan: A 57-year-old female with: 1.Sepsis secondary to pneumonia. The patient's lactate is still elevated. The patient is tachycard ic. We will repeat IV fluid bolus and monitor lactate level. 2.Pneumonia. Cultures negative. Antibiotics have been adjusted by Dr. Weir. 3.Clostridium difficile colitis. We will start on vancomycin p.o. and Lactinex. Continue to monito r. 4.Acute respiratory distress secondary to pneumonia and sepsis. The patient is on 4 L, this morning has been weaned down to 2 L. We will continue to monitor and wean off oxygen as tolerated. 5.Coumadin coagulopathy. Repeat INR is 2.69. We will resume Coumadin dose and monitor INR. 6.Paroxysmal atrial fibrillation, rate controlled. The patient is on Coumadin. 7.Essential hypertension, stable. 8.Myasthenia gravis, stable. 9.Morbid obesity, body mass index of 44.4. 10.Deep venous thrombosis prophylaxis. The patient will be started back on Coumadin today. INR is between 2 and 3. 11.Right bundle-branch block. Plan: Appreciate Pulmonology input. Wean off room air. Antibiotics have been adjusted. Steroids h ave been added. Follow up on final culture results. Likely discharge in the next 24-48 hours depend ing on clinical response. /MODL Voice ID: [id number] Report ID: [id number]
[2018-11-07] MEDS: DOXYCYCLINE 100 MG CAP PO SCH (20:50)
[2018-11-07] MEDS: LACTOBACILLUS/ACIDOPHILUS TAB PO SCH (20:51)
[2018-11-07] MEDS: ATORVASTATIN 10 MG TAB PO SCH (20:51)
[2018-11-07] MEDS: ROPINIROLE HCL 2 MG PO SCH (21:03)
[2018-11-08] MEDS: VANCOMYCIN ORAL SOLN 250 MG/5 ML OSYR PO SCH ×4 (00:09→17:09)
[2018-11-08] MEDS: METHYLPREDNISOLONE 40 MG INJ IV SCH ×3 (00:10→17:10)
[2018-11-08] MEDS: LEVALBUTEROL 1.25 MG/3 ML NEB NEB SCH ×4 (01:15→19:31)
[2018-11-08] MEDS: IPRATROPIUM BROM 0.5MG/2.5ML NEB SCH ×4 (01:15→19:31)
[2018-11-08 04:16] LABS: Absolute Lymphocytes (CBC) 0.7 K/uL (0.7-4.9); Absolute Monocytes 0.5 K/uL (0.1-1.3); Absolute Neutrophil 6.1 K/uL (1.8-8.0); Basophils % 0.1 % (0-1.3); Hematocrit 36.2 % (36.0-45.0); Lymphocytes % 9.2 % (15.3-44.8); MPV 8.9 fL (7.6-11.3); Monocytes % 7.2 % (3.3-12.3); RBC Red Blood Cell Count 4.24 M/uL (3.86-4.86)
[2018-11-08 04:27] LABS: Protime INR 2.12
[2018-11-08 04:34] LABS: BUN Blood Urea Nitrogen 10 mg/dL (7-18); Bicarbonate 30 mmol/L (21-32); Glucose Level 118 mg/dL (74-106); Sodium Level 144 mmol/L (136-145)
[2018-11-08 04:40] LABS: Blood Morphology Comment NOT SEEN (NOT SEEN); Platelet Estimate ADEQ; Urine White Blood Cell Casts OK
[2018-11-08] MEDS: PYRIDOSTIGMINE 60 MG TABLET PO SCH ×3 (05:32→22:08)
[2018-11-08] MEDS: LACTOBACILLUS/ACIDOPHILUS TAB PO SCH ×2 (08:11→22:07)
[2018-11-08] MEDS: DOXYCYCLINE 100 MG CAP PO SCH ×2 (08:11→22:07)
[2018-11-08] MEDS: CEFTRIAXONE/SWI 1gm 1 GM/10 ML SYR IV SCH ×2 (08:12→22:08)
[2018-11-08] MEDS: Fluticasone/Vilanterol (Breo Ellipta) 200-25 Mcg Inh IH SCH (08:12)
[2018-11-08] MEDS: LOSARTAN POTASSIUM 50 MG TABLET PO SCH (08:12)
--- NOTE | 2018-11-08 08:23 | P.PN ---
Subjective Date of Service: 11/08/18 Chief Complaint: Shortness of breath shortness of breath Subjective: Improving (And he is doing much better shortness of breath has improved still complains of some wheezing) Review of Systems Respiratory: Shortness of Breath Physical Examination - Vital Signs Temperature: 97.4 F Blood Pressure: 160/82 Pulse: 75 Respirations: 16 Pulse Ox (%): 94 - Physical Exam General: Alert HEENT: Atraumatic, Other Respiratory: Clear to auscultation bilaterally Cardiovascular: No edema, Normal S1 S2 Assessment & Plan - Problems (Diagnosis) (1) Shortness of breath Current Visit: No Status: Acute Plan: Patient admitted with shortness of breath had doing better possible discharge on a trilogy and low-dose prednisone also had a macrolide due to its anti inflammatory properties Discharge Plan: Home Plan to discharge in: 24 Hours
--- NOTE | 2018-11-08 17:03 | PN ---
Date of Progress Note: 11/08/2018 Subjective: Patient seen and examined. Chart reviewed and case discussed with RN and Dr. Weir. The patient still having some shortness of breath, especially with exertion. Diarrhea has worsened, now has had 4 episodes since last night. Medications: List reviewed. Physical Examination: Vital Signs: Temperature 97.6, heart rate 65, blood pressure 137/69, respirations 20, O2 90% on 4 li ters via nasal cannula. General: Awake, alert, and oriented x3, ill-appearing female, obese, BMI 44. CV: S1, S2. Regular rate and rhythm. Peripheral pulses present. Respiratory: Diminished breath sounds, some wheezing heard. Gastrointestinal: Abdomen is soft, nontender, nondistended. Positive bowel sounds. Extremities: No clubbing, cyanosis, or edema. Neurologic: Nonfocal. Laboratory Data: INR 2.12. WBC 7.3, H and H 12 and 36.2, platelets 232. Sodium 144, potassium 4, c hloride 109, CO2 30, BUN 10, creatinine 0.55, glucose 118, calcium 8.8. Blood cultures, no growth to date. Sputum culture reduced quantity of respiratory ursula. Assessment And Plan: A 57-year-old female with; 1.Sepsis secondary to pneumonia. No clinical signs of sepsis, not hypotensive. White count is norm al. The patient's lactate was elevated yesterday. May be due to her hypoxia. 2.Pneumonia. Cultures negative. Antibiotics adjusted by Dr. Weir. Clinically improved. 3.Clostridium difficile colitis. We will continue p.o. vancomycin and Lactinex. If the patient is having more diarrhea, we will continue isolation protocol. 4.Acute respiratory distress secondary to pneumonia. The patient still on 4 liters, difficult to we an down, likely secondary to her COPD. 5.Coumadin, coagulopathy, INR now therapeutic range. Continue to monitor and continue Coumadin. 6.Paroxysmal atrial fibrillation, rate controlled. Continue Coumadin. 7.Essential hypertension stable, on home medications. 8.Myasthenia gravis, stable. 9.Morbid obesity, BMI of 44.4. 10.Right bundle branch block. 11.DVT prophylaxis on Coumadin with therapeutic INR. Plan: Wean off O2. DC in the next 24-48 hours once off oxygen. SA/MODL Voice ID: [id number] Report ID: [id number]
[2018-11-08] MEDS: WARFARIN SODIUM 5 MG TAB PO SCH (17:10)
[2018-11-08] MEDS: ROPINIROLE HCL 2 MG PO SCH (22:07)
[2018-11-08] MEDS: ATORVASTATIN 10 MG TAB PO SCH (22:08)
[2018-11-08] MEDS ORDERED: METOPROLOL TAR 25 MG TAB PO ONE (22:50)
[2018-11-09] MEDS: METHYLPREDNISOLONE 40 MG INJ IV SCH ×2 (00:49→09:06)
[2018-11-09] MEDS: VANCOMYCIN ORAL SOLN 250 MG/5 ML OSYR PO SCH ×4 (00:49→17:30)
[2018-11-09] MEDS: IPRATROPIUM BROM 0.5MG/2.5ML NEB SCH ×3 (02:00→13:43)
[2018-11-09] MEDS: LEVALBUTEROL 1.25 MG/3 ML NEB NEB SCH ×2 (02:00→07:41)
[2018-11-09] MEDS: PYRIDOSTIGMINE 60 MG TABLET PO SCH ×2 (05:22→13:49)
--- NOTE | 2018-11-09 06:11 | EKG ---
Test Date: 2018-11-08 Test Time: 22:42:27 Side Door Man: RT Cole MEASUREMENT RESULTS: Intervals: Rate: 156 VT: QRSD: 74 QT: 268 QTc: 431 [place]: P: VT: QRS: -25 T: -6 INTERPRETIVE STATEMENTS: Atrial fibrillation with rapid ventricular response Low voltage QRS Inferior infarct, age undetermined Cannot rule out Anteroseptal infarct, age undetermined Abnormal ECG Compared to ECG 11/04/2018 16:44:19 Low QRS voltage now present Sinus tachycardia no longer present Left-axis deviation no longer present Myocardial infarct finding still present Electronically Signed On 11-09-18 06:11:14 CDT by Amos Oneil
[2018-11-09 06:29] LABS: Protime INR 2.02
[2018-11-09 06:30] LABS: Absolute Lymphocytes (CBC) 0.9 K/uL (0.7-4.9); Absolute Monocytes 0.4 K/uL (0.1-1.3); Absolute Neutrophil 8.7 K/uL (1.8-8.0); Basophils % 0.3 % (0-1.3); Eosinophils % 0.1 % (0-4.4); Hematocrit 38.8 % (36.0-45.0); Lymphocytes % 9.3 % (15.3-44.8); MPV 8.7 fL (7.6-11.3); Monocytes % 4.4 % (3.3-12.3); RBC Red Blood Cell Count 4.57 M/uL (3.86-4.86)
[2018-11-09 06:45] LABS: Potassium 4.2 mmol/L (3.5-5.1)
[2018-11-09 07:50] LABS: Blood Morphology Comment NOT SEEN (NOT SEEN); Platelet Estimate ADEQ; Urine White Blood Cell Casts OK
[2018-11-09] MEDS ORDERED: ROFLUMILAST 500 MCG TABLET PO SCH (09:00)
[2018-11-09] MEDS: LOSARTAN POTASSIUM 50 MG TABLET PO SCH (09:05)
[2018-11-09] MEDS: LACTOBACILLUS/ACIDOPHILUS TAB PO SCH ×2 (09:05→20:35)
[2018-11-09] MEDS: Fluticasone/Vilanterol (Breo Ellipta) 200-25 Mcg Inh IH SCH (09:06)
[2018-11-09] MEDS: DOXYCYCLINE 100 MG CAP PO SCH ×2 (09:07→20:35)
[2018-11-09] MEDS: CEFTRIAXONE/SWI 1gm 1 GM/10 ML SYR IV SCH (09:07)
[2018-11-09] MEDS ORDERED: METOPROLOL TAR 50 MG TAB PO SCH (09:33)
--- NOTE | 2018-11-09 10:06 | P.PN ---
Subjective Date of Service: 11/09/18 Chief Complaint: Shortness of breath shortness of breath Subjective: Improving (Patient is slowly improving still complaining of shortness of breath wheezing hypoxic) Review of Systems General: Weakness Respiratory: Cough, Shortness of Breath Physical Examination - Vital Signs Temperature: 97.5 F Blood Pressure: 154/74 Pulse: 123 Respirations: 18 Pulse Ox (%): 94 - Physical Exam General: Alert, Oriented x3 Respiratory: Expiratory wheezes Cardiovascular: No edema, Regular rate/rhythm Assessment & Plan - Problems (Diagnosis) (1) Shortness of breath Current Visit: No Status: Acute Plan: Patient admitted with shortness of breath more likely asthma exacerbation the change to p.o. prednisone I have added Daliresp. Patient can be discharged home on prednisone 10 mg twice a day for 14 days continue with the trilogy I have also added Zithromax she also needs to be on Daliresp 500 mg daily qualify for home oxygen. Metoprolol
[2018-11-09] MEDS ORDERED: LEVALBUTEROL 1.25 MG/3 ML NEB NEB PRN (10:08)
[2018-11-09 16:21] VITALS: TEMP 97.4
[2018-11-09] MEDS: WARFARIN SODIUM 5 MG TAB PO SCH (17:31)
[2018-11-09 17:37] VITALS: O2SAT 92
[2018-11-09] MEDS ORDERED: METOPROLOL TAR 25 MG TAB PO SCH (18:00)
[2018-11-09] MEDS ORDERED: METOPROLOL TAR 25 MG TAB PO ONE (18:27)
[2018-11-09 20:34] VITALS: BP 119/71
[2018-11-09] MEDS: ATORVASTATIN 10 MG TAB PO SCH (20:35)
[2018-11-09] MEDS ORDERED: predniSONE 20 MG TAB PO SCH (21:00)
[2018-11-09] MEDS: ROPINIROLE HCL 2 MG PO SCH (21:00)
[2018-11-10] MEDS ORDERED: METOPROLOL TAR 25 MG TAB PO SCH (06:00)
--- NOTE | 2018-11-10 15:33 | DS ---
Date of Discharge: 11/09/2018 Admitting Diagnoses: 1.Right lower lobe pneumonia. 2.Morbid obesity. 3.Hypertension. 4.Paroxysmal atrial fibrillation. 5.Myasthenia gravis. 6.Warfarin-induced coagulopathy. Discharge Diagnoses: 1.Sepsis secondary to pneumonia. 2.Pneumonia, right lower lobe. 3.Clostridium difficile colitis. 4.Acute respiratory distress secondary to pneumonia. 5.Coumadin coagulopathy, corrected. 6.Paroxysmal atrial fibrillation. 7.Essential hypertension. 8.Myasthenia gravis, stable. 9.Morbid obesity, BMI 44. 10.Right bundle-branch block. Hospital Course: The patient is a 57-year-old female with past medical history of myasthenia gravis, morbid obesity, paroxysmal atrial fibrillation, who was admitted for sepsis and pneumonia. The woo ent was tachycardic, tachypneic. The patient also had elevated INR of 4.22. Her Coumadin was held u ntil her INR was back in therapeutic level. The patient was started on IV antibiotics. Cultures wer e obtained, which were negative. She also developed some diarrhea and her C diff test result was pos itive. She was started on oral vancomycin. Her repeat chest x-ray showed improvement in the left jorge luis ng base compared to previous. Dr. Weir, the patient's fiction and nonfiction author, was also consulted, as the patient had difficulty being weaned off O2. She was on 4 L of supplemental oxygen and was becoming v inna dyspneic upon exertion. The patient was able to be weaned off slowly. She also went into atrial fibrillation with RVR and required beta-blockers to be started. The patient previously had not been on beta-blockers, likely due to her pulmonary disease. The patient was able to tolerate metoprolol well. Her heart rate decreased from the 170s to 180s down to 120s to 110s. The patient did not comp dorothy of any chest pain. Overall, the patient did well. The patient's home inhalers were adjusted by Dr. Weir. She was then cleared for discharge. Once her oxygenation was satisfactory, she was a ble to be weaned off and was 94% with activity and 90% at rest. Her heart rate had also improved to the 90s to 110s. Medications: As per medication reconciliation list. She will finish off course of azithromycin. Sh e will be on a new inhaler, Trelegy Ellipta. She will be started on metoprolol for her atrial fibril lation and rate control. She will also be on a steroid taper and finish off a 10-day course of oral vancomycin for C diff. Followup: Follow up with primary care physician in 2 to 3 days; follow up with fiction and nonfiction author, Dr. Cory good, in 2 weeks. Return to ER for worsening condition. Diet: Wilkin diet. Activity: As tolerated. Physical Examination: General: Awake, alert, oriented x3. No acute distress. Morbidly obese female. CV: S1, S2. Irregularly irregular. Peripheral pulses present. Respiratory: Diminished breath sounds at the left base; however, improved. No wheezing. Gastrointestinal: Abdomen is soft, nontender, nondistended. Positive bowel sounds. Extremities: No clubbing, cyanosis, or edema. Neurologic: Nonfocal. Total time spent discharging the patient was 45 minutes. /UDAY Voice ID: [id number] Report ID: [id number]
== END 2018-11-09 21:20 | disposition home or self-care (01) | DRG 871 ==
LOC: ER 15:24 → ERHOLD 17:54 → 4TH 19:59
PROVIDERS: ADMIT Family Medicine; ATTEND Family Medicine
DX: A41.9 Sepsis, unspecified organism (principal); J18.9 Pneumonia, unspecified organism; A04.72 Enterocolitis due to Clostridium difficile, not specified as recurrent; D68.9 Coagulation defect, unspecified; Z68.41 Body mass index [BMI] 40.0-44.9, adult; R06.03 Acute respiratory distress; I48.0 Paroxysmal atrial fibrillation; I10 Essential (primary) hypertension; G70.00 Myasthenia gravis without (acute) exacerbation; E66.01 Morbid (severe) obesity due to excess calories; I45.10 Unspecified right bundle-branch block; Z88.0 Allergy status to penicillin
CPT/HCPCS: 36415; 71045; 71046; 80048; 80053; 80076; 81003; 82550; 82553; 83605; 83690; 84145; 84484; 85025; 85610; 85730; 87040; 87070; 87205; 87493; 93005; 94640; 94760; 96365; 96366; 96375; 99285; J0696; J2920; J2930; J7030; J7512